=== PATIENT | female | born 1940 | race Caucasian/White ===

== ENCOUNTER 2024-07-02 19:16 | Observation (INO) | payer OTHER, SELFPAY ==
[2024-07-02] VITALS (8 sets, daily range): BP systolic 100–157; BP diastolic 61–89; BMI 23.9; BMI 22.8
--- NOTE | 2024-07-02 14:03 | ED.GENMED ---
History of Present Illness
<Ladi Duarte PA-C - Last Filed: 07/02/24 22:00>
General
Chief Complaint: Head Injury
Source: patient
Exam Limitations: none
Time Seen by Provider: 07/02/24 14:01
Nursing documentation reviewed up to this point in time: agreed with
History of Present Illness
History of Present Illness:
83-year-old female with a past medical history of dementia, hypertension, hyperlipidemia, diabetes presents to the emergency department today with concerns of a fall as well as generalized weakness. I spoke to son he reports that patient originally
was living at home with her however her dementia and memory issues have been gotten worse and she struggled to take care of herself so she moved into the memory care unit of her [facility] on June 27. Son reports that at her
baseline, she is confused and is able to have a conversation and answer questions however she really struggles with short-term memory. Staff reports that earlier this morning, they heard a thud and she was found on the ground of the bathroom.
Staff helped her back in the bed however noticed at around lunchtime, patient had bruising noted to her forehead and to her right upper extremity. She also appeared weaker. When I speak to patient, ask her why she is here, she reports that she is
here because she had some dizziness this morning. Patient states that she does not recall falling. Patient states that the dizziness was lasted a few seconds and she no longer feels this way and states that she feels back to her baseline. She
denies any chest pain or shortness of breath. She denies any fevers or chills or belly pain. She denies any pain in her right upper extremity or headaches.
Past History
<Ladi Duarte PA-C - Last Filed: 07/02/24 22:00>
Past History
ED Past Medical History: HTN, Hypercholesterolemia, Valvular disease and Other (dementia)
ED Past Surgical History: Orthopedic
Social History
Tobacco: Non-smoker
Personal:
Living: with family
Review of Systems
<Ladi Duarte PA-C - Last Filed: 07/02/24 22:00>
Review of Systems
All Other Systems: ROS reviewed and negative except as documented in HPI and ROS
Phy Exam
<Ladi Duarte PA-C - Last Filed: 07/02/24 22:00>
Physical Exam
Physical Exam:
General: Patient is well appearing and in no acute distress; non-toxic
Skin: Warm and dry
Head: Ecchymosis noted to left forehead, no palpable hematoma
Eyes: Sclera non-icteric. EOMs intact.
Neck: No midline spinal tenderness
Cardiac: Irregular heart beat, no murmurs
Pulm: Normal respiratory effort, no wheezes, rales, or rhonchi
Abdomen: No abdominal tenderness to palpation, no ecchymosis, no signs of trauma
Musculoskeletal: Scattered bruising noted to right upper extremity, swelling and bruising noted to right 3rd digit, no bony tenderness to palpation, full range of motion of bilateral upper extremities
Neuro: CN II-XII intact, no focal neurologic deficits.
Psychiatric: Appropriate mood and affect.
Course
<Ladi Duarte PA-C - Last Filed: 07/02/24 22:00>
Orders/Labs/Results
Orders:
Orders
07/02/24 14:20
CT Head W/o Iv Contrast Urgent
Comment:
Reason For Exam: dizziness, AMS
Cardiac Monitoring- Treatment ONCE
07/02/24 14:21
Electrocardiogram (*1) Urgent
Reason for Study: Vertigo / Dizzy
EKG- Treatment ONCE
07/02/24 14:23
CT Cervical Spine W/o Iv Contr Urgent
Comment:
Reason For Exam: blunt head trauma
07/02/24 14:28
CR Chest - 2 Views Urgent
Comment:
Reason For Exam: hypoxia, weakness
07/02/24 14:31
CR Hand - Right Min 3 Views Urgent
Reason For Exam: right hand pain and swelling
07/02/24 14:50
COVID-19 Antigen Urgent
Source: Nasal Swab
Complete Blood Count/With Diff Urgent
Comprehensive Metabolic Panel Urgent
Urinalysis Reflex To Culture Urgent
Date Specimen was Collected: 07/02/24
Time Specimen was Collected: 14:40
Comment: straight cath
Urine Microscopic Reflex Cult Urgent
Influenza A+B Rapid Molecular Urgent
JAMEY Source: Nasal Swab
Specimen Description:
07/02/24 Dinner
1800 calorie (15 carb) Diabetic
At Your Request: Limited, Gaming Department Head Required
07/02/24 16:39
D-Dimer Urgent
07/02/24 18:36
Admit/Transfer Patient As Directed
Co-Sign Provider:
Level of Care: Observation services
Assign to:: Telemetry
Physician / Group: Jadyn Ward
Diagnosis: acute hypoxic respiratory insufficiency, covid, ambulatory dysfunction
Reason for Telemetry: Arrhythmia
Date to Stop Telemetry: 07/05/24
Time to Stop Telemetry: 11:00
07/02/24 18:37
PRN Pain Medication Management As Directed
May give lesser potent ordered pain med per pt: Yes
preference::
Protocol:: Medication orders for pain may be administered in a
manner that supports deferring to patient preference
when the pt is:
- Requesting an ordered lesser potent pain medication.
Least to most potent pain medications are defined
as: acetaminophen < NSAID < tramadol < opioids
(morphine, oxycodone, hydromorphone).
- Requesting a lesser dose of the same medication IF
ORDERED.
- Requesting a less intrusive route of administration
if both routes are prescribed by the provider (PO <
IV).
07/02/24 18:41
Code Status As Directed
Resuscitation Status: Full Code
07/02/24 21:27
Acetaminophen [Tylenol] 650 mg PO Q4HPRN PRN
Carvedilol [Coreg] 6.25 mg PO BID
Dexamethasone Sod Phosphate [Decadron] 6 mg IV Q24H
Dextrose 50%-Water [Dextrose 50% Syringe] 12.5 grams IV [id number] PRN
Glucagon [GlucaGen] 1 mg IM PRN PRN
METFORMIN HCl [Glucophage] 1,000 mg PO BID
insulin glargine [Lantus Solostar U-100 Insulin] 5 unit SC BID
07/02/24 21:27
Activity As Directed
Activity Level: With Assistance
Bedside Glucose Monitoring As Directed
Frequency: AC&HS
Additional Instructions:: Change to q6h if pt on TPN, tube feeding or not eating
Orthostatic Vital Signs As Directed
Orthostatic VS Frequency: Daily
Vital Signs As Directed
Frequency: Per unit guidelines
Weight As Directed
Frequency: Once
Oxygen Therapy [O2 Therapy] [RESP] Routine
Titrate/Wean O2 to maintain O2 sat greater than (%): 93
Ot Eval And Treat Routine
Pt Eval And Treat Routine
Activity Level: With Assistance
DX Deep Vein Thrombosis Video Routine
07/02/24 22:00
Repaglinide [Prandin] 0.5 mg PO TID
07/03/24 06:00
Basic Metabolic Panel IN AM
Complete Blood Count/No Diff IN AM
Glycohemoglobin (HgbA1c) IN AM
07/03/24 07:30
Insulin Aspart Corrective Low [Novolog Flexpen-Low Resistance] See Protocol SC AC
07/03/24 08:00
Aspirin Low Dose EC [Aspir Low (Enteric Coated)] 81 mg PO DAILY
Cholecalciferol (Vitamin D3) [VITAMIN D3 (cholecalciferol)] 125 mcg PO DAILY
Lisinopril [Zestril] 2.5 mg PO DAILY
Rosuvastatin Calcium [Crestor] 20 mg PO DAILY
fupaujep-ohj-RF-lycopen-lutein [CertaVite Senior] 1 tablet PO DAILY
omega 4-ppm-oll-fish oil [Fish Oil] 1 cap PO DAILY
07/03/24 18:00
Enoxaparin Sodium [Lovenox] 40 mg SC QPM
07/05/24 11:00
DC Protocol for Telemetry ONCE
Abnormal Lab Results
07/02/24 07/02/24
14:50 16:39
Absolute Monos (auto) 0.7 H 10^3/uL
(0.1-0.6)
Lymphocytes % 18.2 L %
(20.5-51.1)
Eosinophils % 7.1 H %
(0-6)
D-Dimer 1.28 H ug/mlFEU
(0.00-0.50)
BUN 26 H mg/dl
(7-17)
Glucose 303 H mg/dl
(70-99)
Urine Bacteria (Reflex) Few A
(Negative)
Urine Glucose 4+ A
(Negative)
Urine Albumin (Reflex) 1+ A
(Neg - Trace)
SARS-CoV-2 Antigen Positive A
(Negative)
07/02/24 14:50
07/02/24 14:50
Vital Signs
Initial and Last Documented VS:
Initial Vital Signs
Temp Pulse Resp BP Pulse Ox
97.9 F 71 16 127/77 93
07/02/24 13:49 07/02/24 13:49 07/02/24 13:49 07/02/24 13:49 07/02/24 13:49
Last Documented Vital Signs
Temp Pulse Resp BP Pulse Ox
97.9 F 64 14 145/61 91
07/02/24 13:49 07/02/24 20:00 07/02/24 19:45 07/02/24 20:00 07/02/24 20:00
<Aleks Castellanos MD - Last Filed: 07/02/24 15:18>
Orders/Labs/Results
Orders:
Orders
07/02/24 14:20
CT Head W/o Iv Contrast Urgent
Comment:
Reason For Exam: dizziness, AMS
Cardiac Monitoring- Treatment ONCE
07/02/24 14:21
Electrocardiogram (*1) Urgent
Reason for Study: Vertigo / Dizzy
EKG- Treatment ONCE
07/02/24 14:23
CT Cervical Spine W/o Iv Contr Urgent
Comment:
Reason For Exam: blunt head trauma
07/02/24 14:28
CR Chest - 2 Views Urgent
Comment:
Reason For Exam: hypoxia, weakness
07/02/24 14:31
CR Hand - Right Min 3 Views Urgent
Reason For Exam: right hand pain and swelling
07/02/24 14:50
COVID-19 Antigen Urgent
Source: Nasal Swab
Complete Blood Count/With Diff Urgent
Comprehensive Metabolic Panel Urgent
Urinalysis Reflex To Culture Urgent
Date Specimen was Collected: 07/02/24
Time Specimen was Collected: 14:40
Comment: straight cath
Urine Microscopic Reflex Cult Urgent
Influenza A+B Rapid Molecular Urgent
JAMEY Source: Nasal Swab
Specimen Description:
07/02/24 Dinner
1800 calorie (15 carb) Diabetic
At Your Request: Limited, Gaming Department Head Required
07/02/24 16:39
D-Dimer Urgent
07/02/24 18:36
Admit/Transfer Patient As Directed
Co-Sign Provider:
Level of Care: Observation services
Assign to:: Telemetry
Physician / Group: Jadyn Ward
Diagnosis: acute hypoxic respiratory insufficiency, covid, ambulatory dysfunction
Reason for Telemetry: Arrhythmia
Date to Stop Telemetry: 07/05/24
Time to Stop Telemetry: 11:00
07/02/24 18:37
PRN Pain Medication Management As Directed
May give lesser potent ordered pain med per pt: Yes
preference::
Protocol:: Medication orders for pain may be administered in a
manner that supports deferring to patient preference
when the pt is:
- Requesting an ordered lesser potent pain medication.
Least to most potent pain medications are defined
as: acetaminophen < NSAID < tramadol < opioids
(morphine, oxycodone, hydromorphone).
- Requesting a lesser dose of the same medication IF
ORDERED.
- Requesting a less intrusive route of administration
if both routes are prescribed by the provider (PO <
IV).
07/02/24 18:41
Code Status As Directed
Resuscitation Status: Full Code
07/02/24 21:27
Acetaminophen [Tylenol] 650 mg PO Q4HPRN PRN
Carvedilol [Coreg] 6.25 mg PO BID
Dexamethasone Sod Phosphate [Decadron] 6 mg IV Q24H
Dextrose 50%-Water [Dextrose 50% Syringe] 12.5 grams IV [id number] PRN
Glucagon [GlucaGen] 1 mg IM PRN PRN
METFORMIN HCl [Glucophage] 1,000 mg PO BID
insulin glargine [Lantus Solostar U-100 Insulin] 5 unit SC BID
07/02/24 21:27
Activity As Directed
Activity Level: With Assistance
Bedside Glucose Monitoring As Directed
Frequency: AC&HS
Additional Instructions:: Change to q6h if pt on TPN, tube feeding or not eating
Orthostatic Vital Signs As Directed
Orthostatic VS Frequency: Daily
Vital Signs As Directed
Frequency: Per unit guidelines
Weight As Directed
Frequency: Once
Oxygen Therapy [O2 Therapy] [RESP] Routine
Titrate/Wean O2 to maintain O2 sat greater than (%): 93
Ot Eval And Treat Routine
Pt Eval And Treat Routine
Activity Level: With Assistance
DX Deep Vein Thrombosis Video Routine
07/02/24 22:00
Repaglinide [Prandin] 0.5 mg PO TID
07/03/24 06:00
Basic Metabolic Panel IN AM
Complete Blood Count/No Diff IN AM
Glycohemoglobin (HgbA1c) IN AM
07/03/24 07:30
Insulin Aspart Corrective Low [Novolog Flexpen-Low Resistance] See Protocol SC AC
07/03/24 08:00
Aspirin Low Dose EC [Aspir Low (Enteric Coated)] 81 mg PO DAILY
Cholecalciferol (Vitamin D3) [VITAMIN D3 (cholecalciferol)] 125 mcg PO DAILY
Lisinopril [Zestril] 2.5 mg PO DAILY
Rosuvastatin Calcium [Crestor] 20 mg PO DAILY
ihgswhuo-ebm-IH-lycopen-lutein [CertaVite Senior] 1 tablet PO DAILY
omega 1-tpn-irt-fish oil [Fish Oil] 1 cap PO DAILY
07/03/24 18:00
Enoxaparin Sodium [Lovenox] 40 mg SC QPM
07/05/24 11:00
DC Protocol for Telemetry ONCE
Abnormal Lab Results
07/02/24 07/02/24
14:50 16:39
Absolute Monos (auto) 0.7 H 10^3/uL
(0.1-0.6)
Lymphocytes % 18.2 L %
(20.5-51.1)
Eosinophils % 7.1 H %
(0-6)
D-Dimer 1.28 H ug/mlFEU
(0.00-0.50)
BUN 26 H mg/dl
(7-17)
Glucose 303 H mg/dl
(70-99)
Urine Bacteria (Reflex) Few A
(Negative)
Urine Glucose 4+ A
(Negative)
Urine Albumin (Reflex) 1+ A
(Neg - Trace)
SARS-CoV-2 Antigen Positive A
(Negative)
07/02/24 14:50
07/02/24 14:50
Vital Signs
Initial and Last Documented VS:
Initial Vital Signs
Temp Pulse Resp BP Pulse Ox
97.9 F 71 16 127/77 93
07/02/24 13:49 07/02/24 13:49 07/02/24 13:49 07/02/24 13:49 07/02/24 13:49
Last Documented Vital Signs
Temp Pulse Resp BP Pulse Ox
97.9 F 64 14 145/61 91
07/02/24 13:49 07/02/24 20:00 07/02/24 19:45 07/02/24 20:00 07/02/24 20:00
Michaellt;Ladi Duarte PA-C - Last Filed: 07/02/24 22:00>
MDM/Problems Addressed
Differential Diagnosis Includes:
ddx include mechanical fall, vasovagal syncope, cardiogenic syncope, dysrhythmia, pneumonia, pulmonary embolism
MDM/Problems Addressed:
83-year-old female presents emergency department with concerns of a unwitnessed fall. Staff noticed bruising this morning on her forehead. Patient does not recall falling but she does note some dizziness today. In the ER, patient was found to be
acutely hypoxic to 84% on room air. She was placed on 2 L. She is found to be COVID-positive likely explaining her hypoxia. Chest x-ray negative for concurrent pneumonia. CAT scan of the head negative for acute head bleed. Will refer for
admission.
Chronic conditions affecting care: Other ( Patient had a valve replacement and follows with Dr. Wagner)
<Ladi Duarte PA-C - Last Filed: 07/02/24 22:00>
*Pulse Oximetry
Patient hypoxic: yes
Comment: 84% on RA
*EKG
Interpreted by ED Provider?: Yes
*Critical Care Note
Total Time (30-74mins, 75-104mins- exclusive of procedures): Not Applicable
<Ladi Duarte PA-C - Last Filed: 07/02/24 22:00>
Update Note
Update Note:
Patient found to be hypoxic to 84% on room air with good pleth. Patient denies shortness of breath. Lung sounds clear. Will place on 2 L via nasal cannula.
ED Attending Note
<Ladi Duarte PA-C - Last Filed: 07/02/24 22:00>
-
Portions of this chart may have been created with voice recognition software.� Occasional wrong word or��sound alike� substitutions may have occurred due to the inherent limitations of voice recognition software.
<Aleks Castellanos MD - Last Filed: 07/02/24 15:18>
ED Attending Note
Patient seen and examined by attending physician: Yes
I performed the substantive portion of visit, reviewed & personally made and approve the management plan that is documented in note by myself or FLOR.: Yes
ED Attending Note:
I have seen and evaluated the patient with a [id number] encounter. I have spoken to the [PA] and involved in the medical history, the physical exam, medical decision making.
Evaluation and management service: agree unless noted differently below.
Results interpretation: agree unless noted differently below.
Patient is a 83-year-old woman with history of dementia, hypertension, hyperlipidemia, diabetes presenting to the emergency department with a fall. Patient had a fall this morning. It was unwitnessed. They found her on the ground. Patient states
that she remembers being dizzy before falling but otherwise cannot provide any additional history. Given her dementia there is limited history. At this time she denies any chest pain shortness of breath nausea vomiting. During my evaluation
patient is resting comfortably. She does have bruising to her right upper extremity and swelling to her right middle finger. She does not have any obvious weakness to her extremities.
Patient is a 83-year-old woman with history of dementia presenting to the emergency department with an unwitnessed fall. On arrival patient is hypoxic. She is requiring nasal cannula. Exam does show scattered bruising and swelling to the right
hand. Concern for traumatic intracranial injury as well as possible fracture. Given the hypoxia dizziness and unwitnessed fall could be PE. Will check blood work including dimer EKG chest x-ray. Will obtain CT scan of the head and neck as well
as x-rays. Patient will need admission.
Discharge Plan
Departure
Patient Disposition: Admit
Date of Disposition: 07/02/24
Time of Disposition: 16:52
Admit to: Med/Surg
Presentation/result/management discussed w/ accepting MD/DO: Hospitalist
Condition: Fair
Discharge Problem:
COVID-19, Acute hypoxemic respiratory failure, Ambulatory dysfunction
Interventions
Interventions:
*Risk Screen - Suicide Last Done: 07/02/24 13:49
*General Assessment Last Done: 07/02/24 13:49
*Neglect/Abuse Screening Last Done: 07/02/24 13:49
*ED- Fall Risk Assessment Last Done: 07/02/24 13:49
*Nursing Disposition Last Done: 07/02/24 21:32
ED- Neurological Assessment Last Done: 07/02/24 13:49
ED-Skin Assessment Last Done: 07/02/24 13:49
Discharge Date and Time
Discharge Date/Time: 07/02/24 21:32
[2024-07-02 15:17] LABS: Urine Albumin 1+ (Neg - Trace); Urine Bilirubin Negative (Negative); Urine Character Clear (Clear); Urine Color Yellow; Urine Glucose 4+ (Negative); Urine Ketone Negative (Negative); Urine Leukocyte Negative (Negative); Urine Nitrite Negative (Negative); Urine Occult Blood Negative (Negative); Urine Specific Gravity 1.025 (<1.030); Urine Urobilinogen Negative (Neg - 1+)
[2024-07-02 15:20] LABS: % Basophils 0.4 % (0-2); % Eosinophils 7.1 % (0-6); % Immature Granulocytes 0.4 % (0-0.5); % Lymphocytes 18.2 % (20.5-51.1); % Monocytes 8.4 % (1.7-9.3); % Neutrophils 65.5 % (42.2-75.2); Absolute Eosinophils 0.6 10^3/uL (0-0.7); Absolute Lymphocytes 1.5 10^3/uL (1.2-3.4); Absolute Monocytes 0.7 10^3/uL (0.1-0.6); Absolute Neutrophils 5.4 10^3/uL (1.4-6.5); Hematocrit 38.5 % (37.0-47.0); Hemoglobin 12.8 g/dL (12.0-16.0); Mean Corp Hgb Conc. 33.2 g/dL (33.0-37.0); Mean Corpuscular Hgb 28.4 pg (27.0-31.0); Mean Corpuscular Volume 85.6 fL (81.0-99.0); Mean Platelet Volume 10.1 fL (7.4-10.4); Nucleated Red Blood Cells % 0 %; Platelet Count 138 10^3/uL (130-400); Red Cell Dist. Width 12.8 % (11.5-14.5); White Blood Cell Count 8.3 10^3/uL (4.8-10.8)
[2024-07-02 15:23] LABS: COVID-19 Antigen Positive (Negative)
[2024-07-02 15:26] LABS: Urine Bacteria Few (Negative); Urine Red Blood Cell 0-2 /HPF (0-2); Urine Squamous Cell 0-2 /LPF (Few); Urine White Cell 0-2 /HPF (0-5)
[2024-07-02 15:35] LABS: ALT (SGPT) 21 U/L (0-35); AST (SGOT) 31 U/L (14-36); Albumin 4.2 g/dl (3.5-5.0); Alkaline Phosphatase 47 U/L (38-126); Blood Urea Nitrogen 26 mg/dl (7-17); Calcium 9.6 mg/dl (8.4-10.2); Carbon Dioxide 29 mmol/L (22-30); Chloride 100 mmol/L (98-107); Estimated Creatinine Clearance 52 ml/min; Glucose 303 mg/dl (70-99); Potassium 4.7 mmol/L (3.5-5.1); Sodium 136 mmol/L (135-145); Total Bilirubin 0.9 mg/dl (0.2-1.3); Total Protein 6.5 g/dl (6.3-8.2); eGFR > 60.00
[2024-07-02 17:09] LABS: D-Dimer 1.28 ug/mlFEU (0.00-0.50)
--- NOTE | 2024-07-02 17:25 | HPS.HSE ---
Family Physician
-
Family Physician: An Johnson DO
Chief Complaint
-
generalized weakness/fall
History of Present Illness
Patient is a 83-year-old female with past medical history significant for hypertension, DM-II, Alzheimer's disease and paroxysmal atrial fibrillation who presented to [facility] ED for evaluation s/p unwitnessed fall. Patient was sent for evaluation
from memory care unit. Patient is poor historian, conversation with son via phone call to gather back ground information. He reports patient has lived at home with her until 3 days ago. She was placed in memory care as her had a fall
with broken ribs and is currently in rehab for strength. Due to her need for 24-hour care with dementia family temporally placed her in memory care where she has sustained multiple falls in 3 days. Patient baseline is pleasantly confused, can carry
normal conversation but short term memory is weak. Facility staff stated they found patient on bathroom floor in morning, was able to get her up back to bed. They observed bruising to forehead and arm around lunch and elected to send patient to ED
for evaluation. Patient denies dizziness, shortness of breath, fevers, chills, nausea, vomiting or diarrhea.
Medical History
Past Medical History
Past Medical History: Reports Other
Additional Past Medical History:
Benign Hypertension
DM-II
Alzheimer's Disease
Mitral Valve Disease
Paroxysmal atrial fibrillation
Past Surgical History: Reports Other
Additional Past Surgical History:
Mitral Valve Repair
Mitral Valve Replacement
Right JAVIER
Appendectomy
Right breast cyst excision benign
Social History
Unable to obtain full social history at this time due to: Dementia
Tobacco: Non-smoker
Alcohol: None
Drug: None
Personal:
Living: With Family
Family History
Family History: Not pertinent
Allergies / Home Medications
Allergies reflects when Allergies were last updated in [facility].
Home Medications with original date entered in [facility]
Allergy/Medication List:
Allergies
Allergy/AdvReac Type Severity Reaction Status Date / Time
No Known Allergies Allergy Verified 02/08/23 10:58
Home Medications
lisinopril 2.5 mg tablet 2.5 mg PO DAILY Blood pressure 01/17/19
aspirin 81 mg tablet,delayed release 81 mg PO DAILY Blood clot prevention/tx 01/01/22
carvedilol 6.25 mg tablet 6.25 mg PO BID Heart disease/condition 01/01/22
metformin 1,000 mg tablet 1,000 mg PO BID Diabetes 01/01/22
rosuvastatin 20 mg tablet 20 mg PO DAILY High cholesterol 01/01/22
cholecalciferol (vitamin D3) 125 mcg (5,000 unit) tablet (Vitamin D3) 125 mcg PO DAILY 07/02/24
insulin glargine 100 unit/mL (3 mL) subcutaneous pen (Lantus Solostar U-100 Insulin) 5 unit SC BID 07/02/24
zgdfcyiq-yvr-ivwuq acid 0.4 mg-lycopene 300 mcg-lutein 250 mcg tablet (CertaVite Senior) 1 tab PO DAILY 07/02/24
omega 8-omj-hws-fish oil 1,000 mg (120 mg-180 mg) capsule (Fish Oil) 1 cap PO DAILY 07/02/24
repaglinide 0.5 mg tablet 0.5 mg PO TID 07/02/24
Review of Systems
-
Unable to obtain full review of systems at this time due to: Dementia
Physical Exam
Vital Signs
Vital Signs
Temp Pulse Resp BP Pulse Ox
97.9 F 78 27 157/77 95
07/02/24 13:49 07/02/24 16:30 07/02/24 16:30 07/02/24 16:00 07/02/24 16:15
Physical Exam
General: Well Developed, Well Nourished, No Apparent Distress and Comfortable
HEENT: NormoCephalic, Moist mucous membranes, Atraumatic, Bingen Conjunctivae, Nose Appears Normal and Ears Appear Normal
Respiratory: Clear and Non Labored Respirations
Cardiac: S1/S2 and Irregular Rhythm
GI: Soft, Non Tender, Non Distended and Normal Bowel Sounds; No Organomegaly
Rectal: Deferred by Provider
Genito-urinary: Deferred by me
Musculoskeletal: No Clubbing, No Cyanosis and No Edema
Skin: IV/Catheter Site and Other (bruising noted to RUE and Right forehead )
Neuro: Awake, Alert and Nonfocal/grossly intact
Psych: Calm
Laboratory Results
-
07/02/24 14:50
07/02/24 14:50
Laboratory Results
Total Bilirubin 0.9 mg/dl (0.2-1.3) 07/02/24 14:50
AST 31 U/L (14-36) 07/02/24 14:50
ALT 21 U/L (0-35) 07/02/24 14:50
Alkaline Phosphatase 47 U/L (38-126) 07/02/24 14:50
Data Reviewed
-
Diagnostic Radiology: Report Reviewed by me (CXR: Mild cardiomegaly, unchanged. No acute pulmonary process.; R Hand: Cannot exclude nondisplaced fracture of the distal aspect of the proximal phalanx of the right middle finger.)
CT Scan: Report Reviewed by me (C-Spine: 1. 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 2. SEVERE RIGHT-SIDED FACET JOINT ARTHROSIS at C4/C5, C5/C6, and C7/T1. 3. Severe right neural foraminal narrowing at C4/C5 and C5/C6. 4. Mild
spinal cord compression and central canal stenosis at C5/C6 and C6/C7. 5. Moderately e)
Lab Data: Labs Reviewed by me
Impression/Plan
-
IMPRESSION/PLAN:
#Covid
#acute hypoxemic respiratory insufficiency
ED staff reported patient hypoxic on roomair down to 84%
CXR: Mild cardiomegaly, unchanged.
No acute pulmonary process.
Covid: positive
Influenza: negative
EKG: ATRIAL FIBRILLATION
INFERIOR INFARCT (CITED ON OR BEFORE 01-JAN-2022)
POSSIBLE ANTERIOR INFARCT , AGE UNDETERMINED
- Admit to telemetry
- Dexamethasone 6mg
- supportive care
#mechanical fall
#ambulatory dysfunction
C-spine CT: 1. 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
2. SEVERE RIGHT-SIDED FACET JOINT ARTHROSIS at C4/C5, C5/C6, and C7/T1.
3. Severe right neural foraminal narrowing at C4/C5 and C5/C6.
4. Mild spinal cord compression and central canal stenosis at C5/C6 and C6/C7.
5. Moderately exaggerated cervical lordosis.
6. MILD ACUTE BILATERAL MAXILLARY SINUSITIS.
7. 2.3 cm right lower pole thyroid nodule.
Head CT: 1. MILD ACUTE BILATERAL MAXILLARY SINUSITIS (left greater than right).
2. Small chronic lacunar infarcts in the basal ganglia bilaterally.
3. Small chronic infarct in the right cerebellar hemisphere.
4. Moderate periventricular and deep white matter leukoaraiosis.
5. Mild to moderate diffuse cerebral and cerebellar volume loss.
Right Hand x-ray: Cannot exclude nondisplaced fracture of the distal aspect of the proximal phalanx of the right middle finger.
- consult PT/OT
#Benign Hypertension
- continue carvedilol and lisinopril
#DM-II
- AccuCheck AC & HS
- SSI
- continue Lantus
- continue metformin and repaglinide
#Paroxysmal atrial fibrillation
EKG: ATRIAL FIBRILLATION
INFERIOR INFARCT (CITED ON OR BEFORE 01-JAN-2022)
POSSIBLE ANTERIOR INFARCT , AGE UNDETERMINED
- continue aspirin and carvedilol
#hyperlipidemia
- hold rosuvastatin in setting of Paxlovid for Covid
#Alzheimer's Disease
#Mitral Valve Disease
Code status: Full code
DVT Prophylaxis: Lovenox sq
--- NOTE | 2024-07-02 19:08 | W.PN.UPDATE ---
Update Note
Progress Note Update
This is an addendum to the H&P written by Tracy Rodriguez on 07/02/2024. Patient seen and examined independently with ASSEMBLY INSPECTOR.
83-year-old female past medical history of cardiomyopathy, hypertension, diabetes, dementia, presenting from concerns of fall and generalized weakness at [facility] care. She fell and hit her head today.
Patient found to be positive for COVID here. She was reportedly hypoxic down to 83%. Currently on 2 L oxygen saturating 96%. Chest x-ray shows no acute process.
Blood sugar 300s. Continue diabetic medications and add insulin sliding scale.
CT head and cervical spine negative.
Questionable hypoxemia. Will start dexamethasone 6 mg daily.
Patient with amatory dysfunction and falls secondary to COVID. Case management.
[2024-07-02 21:38] LABS: Glucose - Point of Care 226 mg/dl (70-99)
[2024-07-02] MEDS: GLUCOPHAGE 1000 MG PO (22:53)
[2024-07-02] MEDS: COREG 6.25 MG PO (22:53)
[2024-07-02] MEDS: LANTUS 0.05 UNITS SC (22:53)
[2024-07-02] MEDS: PRANDIN 0.5 MG PO (22:53)
[2024-07-02] MEDS: DECADRON 6 MG IV (22:53)
[2024-07-03] VITALS (7 sets, daily range): BP systolic 111–161; BP diastolic 57–87; PULSE 69–89; O2SAT 100
[2024-07-03 08:30] LABS: Hematocrit 42.9 % (37.0-47.0); Hemoglobin 14.5 g/dL (12.0-16.0); Mean Corp Hgb Conc. 33.8 g/dL (33.0-37.0); Mean Corpuscular Hgb 28.9 pg (27.0-31.0); Mean Corpuscular Volume 85.6 fL (81.0-99.0); Mean Platelet Volume 10.1 fL (7.4-10.4); Platelet Count 155 10^3/uL (130-400); Red Blood Cell Count 5.01 10^6/uL (4.20-5.40); Red Cell Dist. Width 12.6 % (11.5-14.5)
[2024-07-03 09:00] LABS: Blood Urea Nitrogen 21 mg/dl (7-17); Calcium 9.7 mg/dl (8.4-10.2); Carbon Dioxide 24 mmol/L (22-30); Chloride 101 mmol/L (98-107); Estimated Creatinine Clearance 54 ml/min; Glucose 342 mg/dl (70-99); Potassium 4.7 mmol/L (3.5-5.1); Sodium 137 mmol/L (135-145); eGFR > 60.00
[2024-07-03] MEDS: ASPIR LOW (ENTERIC COATED) 81 MG PO (09:09)
[2024-07-03] MEDS: COREG 6.25 MG PO ×2 (09:10→20:32)
[2024-07-03] MEDS: PRANDIN 0.5 MG PO ×3 (09:10→17:39)
[2024-07-03] MEDS: ZESTRIL 2.5 MG PO (09:10)
[2024-07-03] MEDS: CRESTOR 20 MG PO (09:10)
[2024-07-03] MEDS: LANTUS 0.05 UNITS SC ×2 (09:10→20:32)
[2024-07-03] MEDS: GLUCOPHAGE 1000 MG PO ×2 (09:10→17:39)
[2024-07-03] MEDS: THERAGRAN 1 TABLET PO (09:10)
[2024-07-03] MEDS: VITAMIN D3 (cholecalciferol) 125 MCG PO (09:10)
[2024-07-03 09:13] LABS: Glycohemoglobin (HgbA1c) 9.1 % (4.0-5.6)
[2024-07-03 09:20] LABS: Glucose - Point of Care 365 mg/dl (70-99)
[2024-07-03] MEDS: NOVOLOG FLEXPEN-LOW RESISTANCE 5 UNITS SC ×2 (09:20→12:24)
--- NOTE | 2024-07-03 11:38 | CM ---
Addendum entered by Teresa Zepeda RN 07/03/24 16:16:
[facility] able to accept patient tomorrow (07/04). Voice message left for the patient's son Brandon regarding discharge plan.
Original Note:
Reviewed the chart notes and spoke with the patient's son Brandon via telephone. Patient is admitted under observational status. GRANADOS letter explained to the patient's son and a copy left in patient's room for his review. The son had no questions
with regards to the letter.
Patient with dementia and Covid +. Per Brandon, patient moved into [facility] recently. Prior to resided with spouse in a one story home. Patient's spouse currently at [facility] for rehab after a fall with rib fractures. Patient's spouse
will be moving into [facility] when discharged. Discussed with the patient's son PT/OT recommendations of SNF. Patient's son would like to speak with his sister and make decision. CM contact information provided. Son did agree to a referral being
sent to [facility]. Per son, patient is mainly in wheelchair and usually forgets rolling walker. Patient has had many falls recently. CM continues to be available to patient/family and is monitoring medical plan for needs at discharge.
Plan: Discharge plans will depend on the patient's son decision. Referral sent to [facility] via [facility]. Precert will be required is SNF is discharge plan.
--- NOTE | 2024-07-03 12:13 | W.PN.HOSP.TC ---
Today's Communication/Plan
-
dexamethasone
glucose control
splint
ortho/nsg outpatient f/u
DC ready, CM aware - pending SNF
Assessment / Plan
Assessment / Plan
Physical Exam
General: Well Developed, Well Nourished, No Apparent Distress and Comfortable
HEENT: NormoCephalic, Moist mucous membranes, Atraumatic, [place] Conjunctivae, Nose Appears Normal and Ears Appear Normal
Respiratory: Clear and Non Labored Respirations
Cardiac: S1/S2 and Irregular Rhythm
GI: Soft, Non Tender, Non Distended and Normal Bowel Sounds; No Organomegaly
Rectal: Deferred by Provider
Genito-urinary: Deferred by me
Musculoskeletal: No Clubbing, No Cyanosis and No Edema
Skin: IV/Catheter Site and Other (bruising noted to RUE and Right forehead )
Neuro: Awake, Alert and Nonfocal/grossly intact
Psych: Calm
#SARS-CoV-2
#Acute hypoxemic respiratory insufficiency
-can continue dexamethasone
-Inc latonia, acapella
-wean o2 as tolerated
- supportive care
#mechanical fall
#ambulatory dysfunction
-more than likely exacerbated by SARS-CoV-2 although does have mild spinal cord compression and central canal stenosis
� Supportive care
� PT/OT�SNF
#Mild spinal cord compression and central canal stenosis
� C5/C6 and C6/C7
� Severe right-sided facet joint arthrosis
� Follow-up with neurosurgery outpatient
#Possible nondisplaced fracture of the distal aspect of the proximal phalanx of the right middle finger
� Splint placed
� PT/OT
� Follow-up orthopedics outpatient
#2.3 cm right lower pole thyroid nodule.
-F/u outpatient
Head CT: 1. MILD ACUTE BILATERAL MAXILLARY SINUSITIS (left greater than right).
2. Small chronic lacunar infarcts in the basal ganglia bilaterally.
3. Small chronic infarct in the right cerebellar hemisphere.
4. Moderate periventricular and deep white matter leukoaraiosis.
5. Mild to moderate diffuse cerebral and cerebellar volume loss.
Right Hand x-ray: Cannot exclude nondisplaced fracture of the distal aspect of the proximal phalanx of the right middle finger.
- consult PT/OT
#Benign Hypertension
- continue carvedilol and lisinopril
#DM-II
- AccuCheck AC & HS
- SSI
- continue Lantus
-Aic 9.1
- continue metformin and repaglinide
#Paroxysmal atrial fibrillation
- continue aspirin and carvedilol
-not on anticoag
#hyperlipidemia
- hold rosuvastatin in setting of Paxlovid for Covid
#Alzheimer's Disease
#Mitral Valve Disease
Code status: Full code
DVT Prophylaxis: Lovenox sq
Anticipated Discharge: Within 24 hours
Subjective/Interval History
-
Date of Service: July 03, 2024
No acute events
Objective Data
-
Labs:
Laboratory Results
07/03/24
08:04
WBC 8.0
Hgb 14.5
Hct 42.9
Plt Count 155
Sodium 137
Potassium 4.7
Chloride 101
Carbon Dioxide 24
BUN 21 H
Creatinine 0.7
Glucose 342 H
Calcium 9.7
Vital Signs:
Vital Signs
Temp Pulse Resp BP Pulse Ox
97.4 F 80 17 111/63 96
07/03/24 11:05 07/03/24 11:05 07/03/24 11:05 07/03/24 11:05 07/03/24 11:05
Review of Systems
-
History Source: Patient
All other systems: Not reviewed unless documented
Physical Exam
-
General: No Apparent Distress and Comfortable
HEENT: Normocephalic, Atraumatic and Moist Mucous Membranes
Respiratory: Negative Wheezes or Rales
Cardiac: Regular Rhythm; Negative Murmur
GI: Soft, Nontender and Nondistended
Genito-urinary: No Costovertebral Tender
Musculoskeletal: No Clubbing and No Cyanosis
Skin: Negative Rash
Neuro: Awake and Other (followed commands )
Psych: Calm
Data Reviewed
-
Diagnostic Radiology: Report Reviewed by me
CT Scan: Report Reviewed by me
Labs: Labs Reviewed by me
[2024-07-03 12:34] LABS: Glucose - Point of Care 354 mg/dl (70-99)
[2024-07-03] MEDS: LOVENOX 40 MG SC (17:39)
[2024-07-03] MEDS: NOVOLOG FLEXPEN-MODERATE RESISTANCE 7 UNITS SC (17:41)
[2024-07-03 17:45] LABS: Glucose - Point of Care 308 mg/dl (70-99)
[2024-07-03 20:48] LABS: Glucose - Point of Care 295 mg/dl (70-99)
[2024-07-03] MEDS: DECADRON 6 MG IV (21:48)
[2024-07-04 03:14] VITALS: BP 147/79
[2024-07-04 06:45] LABS: Hematocrit 40.7 % (37.0-47.0); Hemoglobin 13.8 g/dL (12.0-16.0); Mean Corp Hgb Conc. 33.9 g/dL (33.0-37.0); Mean Corpuscular Hgb 28.8 pg (27.0-31.0); Mean Corpuscular Volume 84.8 fL (81.0-99.0); Mean Platelet Volume 10.4 fL (7.4-10.4); Platelet Count 150 10^3/uL (130-400); Red Cell Dist. Width 12.5 % (11.5-14.5); White Blood Cell Count 9.8 10^3/uL (4.8-10.8)
[2024-07-04 06:56] LABS: ALT (SGPT) 21 U/L (0-35); AST (SGOT) 20 U/L (14-36); Albumin 3.9 g/dl (3.5-5.0); Alkaline Phosphatase 62 U/L (38-126); Blood Urea Nitrogen 32 mg/dl (7-17); Calcium 9.9 mg/dl (8.4-10.2); Carbon Dioxide 26 mmol/L (22-30); Chloride 99 mmol/L (98-107); Estimated Creatinine Clearance 48 ml/min; Glucose 429 mg/dl (70-99); Potassium 4.9 mmol/L (3.5-5.1); Sodium 135 mmol/L (135-145); Total Bilirubin 0.9 mg/dl (0.2-1.3); Total Protein 6.2 g/dl (6.3-8.2); eGFR > 60.00
[2024-07-04 07:20] VITALS: BP 143/72
[2024-07-04 07:30] LABS: Glucose - Point of Care 390 mg/dl (70-99)
[2024-07-04] MEDS: GLUCOPHAGE 1000 MG PO (07:54)
[2024-07-04] MEDS: CRESTOR 20 MG PO (07:54)
[2024-07-04] MEDS: ZESTRIL 2.5 MG PO (07:54)
[2024-07-04] MEDS: VITAMIN D3 (cholecalciferol) 125 MCG PO (07:54)
[2024-07-04] MEDS: ASPIR LOW (ENTERIC COATED) 81 MG PO (07:55)
[2024-07-04] MEDS: PRANDIN 0.5 MG PO ×2 (07:55→12:44)
[2024-07-04] MEDS: THERAGRAN 1 TABLET PO (07:56)
[2024-07-04] MEDS: COREG 6.25 MG PO (07:56)
[2024-07-04] MEDS: LANTUS 0.05 UNITS SC (07:56)
[2024-07-04] MEDS: NOVOLOG FLEXPEN-MODERATE RESISTANCE 9 UNITS SC ×2 (07:57→12:36)
[2024-07-04 08:25] VITALS: BP 133/77; BP 143/72; BP 155/83; PULSE 72; PULSE 77; PULSE 83
--- NOTE | 2024-07-04 09:10 | CM ---
Reviewed the chart notes and spoke with the patient's son Brandon regarding bed at [facility]. Brandon is agreeable with discharge plan to [facility]. Auth obtained # [id number]; 07/04-07/09; NRD 07/09; call updtds to [phone]; Ambulance auth # [id number]
CM continues to be available to patient/family and is monitoring medical plan for needs at discharge.
Plan: Discharge to [facility] today.
Call report to: [phone]
Fax report to: [phone]
Medical necessity and transport forms on chart.
[2024-07-04 11:10] VITALS: BP 112/67
[2024-07-04 11:18] LABS: Glucose - Point of Care 374 mg/dl (70-99)
--- NOTE | 2024-07-04 12:19 | W.PN.HOSP.TC ---
Addendum entered and electronically signed by Joseph Urena MD 07/05/24 17:06:
[id number]
Original Note:
Today's Communication/Plan
-
glucose control
ortho, nsg outpt
dexamethasone for covid
dc to SNF
f/u cbc, cmp outpt
thyroid nodule f/u
splint for finger, f/u outpt
Assessment / Plan
Assessment / Plan
Physical Exam
General: Well Developed, Well Nourished, No Apparent Distress and Comfortable
HEENT: NormoCephalic, Moist mucous membranes, Atraumatic, [place] Conjunctivae, Nose Appears Normal and Ears Appear Normal
Respiratory: Clear and Non Labored Respirations
Cardiac: S1/S2 and Irregular Rhythm
GI: Soft, Non Tender, Non Distended and Normal Bowel Sounds; No Organomegaly
Rectal: Deferred by Provider
Genito-urinary: Deferred by me
Musculoskeletal: No Clubbing, No Cyanosis and No Edema
Skin: IV/Catheter Site and Other (bruising noted to RUE and Right forehead )
Neuro: Awake, Alert and Nonfocal/grossly intact
Psych: Calm
#SARS-CoV-2
#Acute hypoxemic respiratory insufficiency, resolved
-can continue dexamethasone x 10 days
-Inc latonia, acapella
-wean o2 as tolerated
- supportive care
-unclear symptom initiation - can hold on paxlovid at this time
#mechanical fall
#ambulatory dysfunction
-more than likely exacerbated by SARS-CoV-2 although does have mild spinal cord compression and central canal stenosis
� Supportive care
� PT/OT�SNF
-F/u NSG outpatient
- no evidence of incontinence
#Mild spinal cord compression and central canal stenosis
� C5/C6 and C6/C7
� Severe right-sided facet joint arthrosis
� Follow-up with neurosurgery outpatient
#Possible nondisplaced fracture of the distal aspect of the proximal phalanx of the right middle finger
� Splint placed
� PT/OT
� Follow-up orthopedics outpatient
#2.3 cm right lower pole thyroid nodule.
-F/u outpatient
#Small chronic lacunar infarcts in the basal ganglia bilaterally.
#Small chronic infarct in the right cerebellar hemisphere.
-on ASA 81
#Benign Hypertension
- continue carvedilol and lisinopril
#DM-II
- AccuCheck AC & HS
- SSI
- continue Lantus - increase to 7 u bid, start aspart AC/HS
-Aic 9.1
- continue metformin and repaglinide
-titrate as needed outpt - especially once steroids stop
#Paroxysmal atrial fibrillation
- continue aspirin and carvedilol
-not on anticoag
-f/u outpt
#hyperlipidemia
- rosuvastatin
#Alzheimer's Disease
#Mitral Valve Disease
Code status: Full code
DVT Prophylaxis: Lovenox sq
More than 30 minutes spent in discharge including
Final examination of the patient
Summarizing hospital stay
Instructions for continuing care to all relevant caregivers
Preparation of discharge records, prescriptions, and referral forms
Total time spent (36 in minutes):
Anticipated Discharge: Today
Subjective/Interval History
-
Date of Service: July 04, 2024
no acute events
Objective Data
-
Labs:
Laboratory Results
07/04/24
06:18
WBC 9.8
Hgb 13.8
Hct 40.7
Plt Count 150
Sodium 135
Potassium 4.9
Chloride 99
Carbon Dioxide 26
BUN 32 H
Creatinine 0.8
Glucose 429 H
Calcium 9.9
Total Bilirubin 0.9
AST 20
ALT 21
Alkaline Phosphatase 62
Vital Signs:
Vital Signs
Temp Pulse Resp BP Pulse Ox
98.0 F 71 16 112/67 97
07/04/24 11:10 07/04/24 11:10 07/04/24 11:10 07/04/24 11:10 07/04/24 11:10
I&O
07/03/24 07/04/24 07/05/24
06:59 06:59 06:59
Intake Total 900 / 900
Balance 900 / 900
Review of Systems
-
History Source: Patient
All other systems: Not reviewed unless documented
Physical Exam
-
General: No Apparent Distress and Comfortable
HEENT: Normocephalic, Atraumatic and Moist Mucous Membranes
Respiratory: Negative Wheezes or Rales
Cardiac: Regular Rhythm; Negative Murmur
GI: Soft, Nontender and Nondistended
Genito-urinary: No Costovertebral Tender
Musculoskeletal: No Clubbing, No Cyanosis and Other (right middle figner brusining - able to move joint)
Skin: Negative Rash
Neuro: Awake and Other (followed commands )
Psych: Calm
Data Reviewed
-
Diagnostic Radiology: Report Reviewed by me
CT Scan: Report Reviewed by me
Labs: Labs Reviewed by me
--- NOTE | 2024-07-04 12:26 | W.DS.TRANS ---
DC Summary - Pacs Administrator
-
Discharge Instructions:
Discharge Diagnosis/Procedures #SARS-CoV-2
#Acute hypoxemic respiratory insufficiency
Diet Diabetic, Carb Controlled,Low Cholesterol,Low
Fat
Activity As tolerated
Blood Work [id number] in 3 months
Others Tests 2.3 cm right lower pole thyroid nodule - follow
up outpatient
Instructions:
Stand-Alone Forms:
Changes to Home Medications: Yes
Discharge Medications:
DC Medications w/original date entered in [facility]
lisinopril 2.5 mg tablet 2.5 mg PO DAILY Blood pressure 01/17/19
aspirin 81 mg tablet,delayed release 81 mg PO DAILY Blood clot prevention/tx 01/01/22
carvedilol 6.25 mg tablet 6.25 mg PO BID Heart disease/condition 01/01/22
metformin 1,000 mg tablet 1,000 mg PO BID Diabetes 01/01/22
rosuvastatin 20 mg tablet 20 mg PO DAILY High cholesterol 01/01/22
cholecalciferol (vitamin D3) 125 mcg (5,000 unit) tablet (Vitamin D3) 125 mcg PO DAILY Supplement 07/02/24
kyjoflgj-qle-sbbvo acid 0.4 mg-lycopene 300 mcg-lutein 250 mcg tablet (CertaVite Senior) 1 tab PO DAILY Supplement 07/02/24
omega 0-jqq-ykr-fish oil 1,000 mg (120 mg-180 mg) capsule (Fish Oil) 1 cap PO DAILY Supplement 07/02/24
repaglinide 0.5 mg tablet 0.5 mg PO TID 07/02/24
Insulin Glargine Lantus [Lantus] 7 units As Directed mls/hr SC BID 07/04/24
dexamethasone 6 mg tablet 6 mg PO DAILY 8 days #8 tabs 07/04/24
insulin aspart U-100 100 unit/mL (3 mL) subcutaneous pen 3 unit (0.03 mL) SC AC #0 mL 07/04/24
Home Medication Changes
Insulin Glargine Lantus [Lantus] 7 units As Directed mls/hr SC BID 07/04/24
dexamethasone 6 mg tablet 6 mg PO DAILY 8 days #8 tabs 07/04/24
insulin aspart U-100 100 unit/mL (3 mL) subcutaneous pen 3 unit (0.03 mL) SC AC #0 mL 07/04/24
Pending Results: No
[2024-07-04] MEDS: NOVOLOG FLEXPEN 3 UNITS SC (12:37)
== END 2024-07-04 14:30 ==
LOC: 2 NORTH 19:16
PROVIDERS: Nurse Practitioner Family; Physician Assistant; ADMITTING PHYSICIAN Hospitalist; ATTENDING PHYSICIAN Internal Medicine; EMERGENCY PHYSICIAN Student in an Organized Health Care Education/Training Program; FAMILY PHYSICIAN Hospitalist
DX: U07.1 COVID-19 (principal); R53.1 Weakness; F02.80 Dementia in other diseases classified elsewhere, unspecified severity, without behavioral disturbance, psychotic disturbance, mood disturbance, and anxiety; I11.9 Hypertensive heart disease without heart failure; E11.9 Type 2 diabetes mellitus without complications; R42 Dizziness and giddiness; M79.641 Pain in right hand; M79.89 Other specified soft tissue disorders; R26.2 Difficulty in walking, not elsewhere classified; R06.89 Other abnormalities of breathing; R09.02 Hypoxemia; W19.XXXA Unspecified fall, initial encounter; M47.12 Other spondylosis with myelopathy, cervical region; M50.023 Cervical disc disorder at C6-C7 level with myelopathy; E04.1 Nontoxic single thyroid nodule; I48.0 Paroxysmal atrial fibrillation; E78.5 Hyperlipidemia, unspecified; G30.9 Alzheimer's disease, unspecified; J01.00 Acute maxillary sinusitis, unspecified; M48.02 Spinal stenosis, cervical region; S00.83XA Contusion of other part of head, initial encounter; Z79.4 Long term (current) use of insulin; Z86.73 Personal history of transient ischemic attack (TIA), and cerebral infarction without residual deficits
CPT/HCPCS: 51701; 70450; 71046; 72125; 73030; 73130; 80048; 80053; 81003; 81015; 82962; 83036; 85025; 85027; 85379; 87502; 87811; 93005; 97116; 97163; 97167; 97535; 99285; G0378

== ENCOUNTER → 2024-07-09 09:54 | Outpatient (REF) | payer OTHER, SELFPAY ==
[2024-07-09 12:48] LABS: % Basophils 0.4 % (0-2); % Eosinophils 3.2 % (0-6); % Immature Granulocytes 1.3 % (0-0.5); % Lymphocytes 27.8 % (20.5-51.1); % Monocytes 8.5 % (1.7-9.3); % Neutrophils 58.8 % (42.2-75.2); Absolute Eosinophils 0.3 10^3/uL (0-0.7); Absolute Immature Granulocytes 0.1 10^3/uL (0-0.05); Absolute Lymphocytes 2.7 10^3/uL (1.2-3.4); Absolute Monocytes 0.8 10^3/uL (0.1-0.6); Absolute Neutrophils 5.7 10^3/uL (1.4-6.5); Hematocrit 39.6 % (37.0-47.0); Hemoglobin 13.3 g/dL (12.0-16.0); Mean Corp Hgb Conc. 33.6 g/dL (33.0-37.0); Mean Corpuscular Hgb 28.6 pg (27.0-31.0); Mean Corpuscular Volume 85.2 fL (81.0-99.0); Mean Platelet Volume 10.1 fL (7.4-10.4); Nucleated Red Blood Cells % 0 %; Platelet Count 213 10^3/uL (130-400); Red Blood Cell Count 4.65 10^6/uL (4.20-5.40); Red Cell Dist. Width 12.7 % (11.5-14.5); White Blood Cell Count 9.7 10^3/uL (4.8-10.8)
[2024-07-09 13:02] LABS: ALT (SGPT) 18 U/L (0-35); AST (SGOT) 21 U/L (14-36); Albumin 3.5 g/dl (3.5-5.0); Alkaline Phosphatase 54 U/L (38-126); Blood Urea Nitrogen 28 mg/dl (7-17); Calcium 9.1 mg/dl (8.4-10.2); Carbon Dioxide 25 mmol/L (22-30); Chloride 102 mmol/L (98-107); Glucose 114 mg/dl (70-99); Potassium 4.3 mmol/L (3.5-5.1); Sodium 135 mmol/L (135-145); Total Bilirubin 0.6 mg/dl (0.2-1.3); Total Protein 5.6 g/dl (6.3-8.2); eGFR > 60.00
== END ==
LOC: OLABP 09:54
PROVIDERS: ATTENDING PHYSICIAN Family Medicine
DX: J96.01 Acute respiratory failure with hypoxia (principal); U07.1 COVID-19; R53.1 Weakness; R26.2 Difficulty in walking, not elsewhere classified; E11.9 Type 2 diabetes mellitus without complications; I10 Essential (primary) hypertension; I48.0 Paroxysmal atrial fibrillation; E78.5 Hyperlipidemia, unspecified; G30.1 Alzheimer's disease with late onset; I34.0 Nonrheumatic mitral (valve) insufficiency
CPT/HCPCS: 36415; 80053; 85025

== ENCOUNTER 2024-11-18 23:43 | Inpatient (IN) | payer OTHER, SELFPAY ==
[2024-11-18] VITALS (7 sets, daily range): BP systolic 104–148; BP diastolic 56–87
[2024-11-18 18:27] LABS: Glucose - Point of Care 299 mg/dl (70-99)
--- NOTE | 2024-11-18 18:33 | ED.GENMED ---
History of Present Illness
General
Chief Complaint: Weakness
Source: patient and ambulance crew
Exam Limitations: dementia
Time Seen by Provider: 11/18/24 18:29
History of Present Illness
History of Present Illness:
84-year-old female presented due to nausea vomiting and weakness. Her son was concerned that she had a UTI. She had mild hypoxia upon arrival.
Past History
Past History
ED Past Medical History: HTN, Hypercholesterolemia, Valvular disease and Other (dementia)
ED Past Surgical History: Orthopedic
Social History
Tobacco: Non-smoker
Personal:
Living: with family
Phy Exam
Physical Exam
Physical Exam:
Physical Exam
General: Actively vomiting ll
Neck: supple. no meningeal signs. normal posterior pharynx
Heart: s1/s2 regular rate and rhythm, no murmur. equal radial
pulses.
HEENT: Pupils equal round reactive to light, EOMI
Lungs: Moderate respiratory distress. clear bilaterally
Abdomen: normal bowel sounds. not tender. no CVAT
Neuro: alert and oriented to person. no focal neurological deficits cranial nerves II through XII intact
Skin: no rash
Psychiatric: well kept. interactive and cooperative
Extremities: no edema. no calf tenderness. negative homans. good distal pulses
Course
Orders/Labs/Results
Orders:
Orders
11/18/24 18:28
Electrocardiogram (*1) Urgent
Reason for Study: Fatigue / Weakness
EKG- Treatment ONCE
11/18/24 18:31
Straight cath- Treatment ONCE
11/18/24 18:33
CT Abd/pelvis W Iv Cont Urgent
Comment:
Reason For Exam: n/v, weakness
11/18/24 18:44
Urinalysis Reflex To Culture Urgent
Date Specimen was Collected: 11/18/24
Time Specimen was Collected: 18:43
11/18/24 18:45
Complete Blood Count/With Diff Urgent
Comprehensive Metabolic Panel Urgent
Lipase Urgent
NT-proBNP Urgent
Comment: ADDON
Troponin I Urgent
11/18/24 22:13
CR Chest - 2 Views Urgent
Comment:
Reason For Exam: low pulse ox
11/18/24 22:48
Add On- LAB Urgent
Tests Added?: bnp
11/18/24 23:00
Furosemide [Lasix] 40 mg IV NOW STA
11/18/24 23:30
COVID-19 Antigen Urgent
Source: Nasal Swab
Abnormal Lab Results
11/18/24 11/18/24 11/18/24
18:26 18:44 18:45
WBC 12.1 H 10^3/uL
(4.8-10.8)
Abs Immat Gran (auto) 0.1 H 10^3/uL
(0-0.05)
Absolute Neuts (auto) 9.8 H 10^3/uL
(1.4-6.5)
Neutrophils % 81.2 H %
(42.2-75.2)
Lymphocytes % 12.1 L %
(20.5-51.1)
Sodium 133 L mmol/L
(135-145)
BUN 22 H mg/dl
(7-17)
Glucose 293 H mg/dl
(70-99)
Urine Ketones 1+ A
(Negative)
Urine Glucose 4+ A
(Negative)
POC Glucose 299 H mg/dl
(70-99)
11/18/24 18:45
11/18/24 18:45
Vital Signs
Initial and Last Documented VS:
Initial Vital Signs
Temp Pulse Resp BP Pulse Ox
97.6 F 79 23 148/87 92
11/18/24 18:30 11/18/24 18:30 11/18/24 18:30 11/18/24 18:30 11/18/24 18:30
Last Documented Vital Signs
Temp Pulse Resp BP Pulse Ox
97.6 F 69 14 105/56 92
11/18/24 18:30 11/18/24 23:03 11/18/24 22:45 11/18/24 23:03 11/18/24 22:45
MDM/Problems Addressed
MDM/Problems Addressed:
Note:
CARE-UPDATE
11/18/24 - 23:04
CT of the abdomen and pelvis showed no acute findings; chest X-ray revealed bilateral interstitial edema. The patient continues to experience hypoxia, currently on 10 liters of oxygen via nasal cannula, with some improvement noted. IV Lasix has been
ordered. Plan to admit under the care of the hospitalist for further management.
Disposition:
SUMMARY OF ENCOUNTER
The patient presented to the emergency department with symptoms suggestive of congestive heart failure (CHF), including hypoxia and vomiting. Upon evaluation, hypoxia was confirmed and the diagnosis of CHF was considered primary, necessitating
further management.
DISPOSITION
Admit
ASSESSMENT
The patient is experiencing hypoxia and vomiting, likely secondary to congestive heart failure.
MANAGEMENT OF THE PATIENTS CARE WAS DISCUSSED WITH
Care was discussed with the hospitalist team for further inpatient management.
PLAN
Admit the patient under the care of the hospitalist team for further management of congestive heart failure and associated hypoxia.
INDEPENDENT REVIEW OF LABS AND INTERPRETATION OF TESTS
My independent interpretation of the chest x-ray shows bilateral interstitial edema, confirming the suspicion of congestive heart failure�s contribution to the patients hypoxia.
MEDICATION RECONCILIATION
IV furosemide (Lasix) was ordered to manage fluid overload associated with CHF.
MEDICAL DECISION MAKING
-Complexity of Data Reviewed:
Chronic conditions affecting care include the pre-existing CHF contributing to current symptoms of hypoxia and vomiting. Differential diagnoses considered include hypoxia secondary to non-cardiac causes.
-Data:
Category 1:
Review of testing, including chest x-ray, showing signs consistent with heart failure, such as interstitial edema.
Category 3:
Discussion of management and test interpretation was conducted with the hospitalist team for appropriate inpatient care transition.
DIAGNOSIS
Congestive Heart Failure (I50.9)
Hypoxia (R09.02)
Vomiting (R11.10)
*Pulse Oximetry
SaO2: 92
Oxygen Mode of Delivery: Room air
Patient hypoxic: yes
*Critical Care Note
Total Time (30-74mins, 75-104mins- exclusive of procedures): Not Applicable
ED Attending Note
-
Portions of this chart may have been created with voice recognition software.� Occasional wrong word or��sound alike� substitutions may have occurred due to the inherent limitations of voice recognition software.
Discharge Plan
Departure
Patient Disposition: Admit
Date of Disposition: 11/18/24
Time of Disposition: 23:01
Admit to: Telemetry
Presentation/result/management discussed w/ accepting MD/DO: Hospitalist
Patient with high blood pressure during this ER visit?: No
Condition: Fair
Discharge Problem:
Acute hypoxemic respiratory failure, Acute exacerbation of CHF (congestive heart failure), Vomiting
Prescriptions:
No Action
lisinopril 2.5 MG tablet
2.5 mg PO DAILY
carvedilol 6.25 mg Tablet
6.25 mg PO BID
aspirin 81 mg Tablet,Delayed Release (Dr/Ec)
81 mg PO DAILY
metformin 1,000 mg Tablet
1,000 mg PO BID
rosuvastatin 20 mg Tablet
20 mg PO DAILY
repaglinide 0.5 mg Tablet
0.5 mg PO TID
CertaVite Senior 0.4 mg-300 mcg- 250 mcg Tablet
1 tab PO DAILY
cholecalciferol (vitamin D3) [Vitamin D3] 125 mcg (5,000 unit) Tablet
125 mcg PO DAILY
omega 5-hjw-gyv-fish oil [Fish Oil] 1,000 (120-180) mg Capsule
1 cap PO DAILY
insulin aspart U-100 100 unit/mL (3 mL) Insulin Pen
3 unit SC AC Qty: 0 0RF
Insulin Glargine Lantus [Lantus] 7 UNITS
Subcutaneous Insulin Syringe [Syringe-Insulin] 0 UNIT
As Directed mls/hr SC BID
Ordered By: Joseph Urena MD
Last Taken: 11/18/24 08:00
Referrals:
An Johnson DO [Family Provider, General]
Interventions
Interventions:
*Risk Screen - Suicide Last Done: 11/18/24 18:29
*General Assessment Last Done: 11/18/24 18:29
*Neglect/Abuse Screening Last Done: 11/18/24 18:29
*ED COVID-19 Vaccine History Last Done: 11/18/24 18:29
ED- Cardiac Assessment Last Done: 11/18/24 18:59
ED- Neurological Assessment Last Done: 11/18/24 18:59
ED- Pulmonary Assessment Last Done: 11/18/24 18:59
Discharge Date and Time
Print Language: SWEDISH
[2024-11-18 19:06] LABS: Hematocrit 37.4 % (37.0-47.0); Hemoglobin 12.6 g/dL (12.0-16.0); Mean Corp Hgb Conc. 33.7 g/dL (33.0-37.0); Mean Corpuscular Volume 84.6 fL (81.0-99.0); Nucleated Red Blood Cells % 0 %; Platelet Count 177 10^3/uL (130-400); Red Cell Dist. Width 12.5 % (11.5-14.5)
[2024-11-18 19:24] LABS: ALT (SGPT) 16 U/L (0-35); AST (SGOT) 21 U/L (14-36); Albumin 4.5 g/dl (3.5-5.0); Alkaline Phosphatase 54 U/L (38-126); Blood Urea Nitrogen 22 mg/dl (7-17); Calcium 10.1 mg/dl (8.4-10.2); Carbon Dioxide 23 mmol/L (22-30); Chloride 101 mmol/L (98-107); Glucose 293 mg/dl (70-99); Lipase 78 U/L (23-300); Potassium 4.4 mmol/L (3.5-5.1); Sodium 133 mmol/L (135-145); Total Protein 6.9 g/dl (6.3-8.2); eGFR > 60.00
[2024-11-18 19:30] LABS: Troponin I < 0.012 ng/ml
[2024-11-18 19:40] LABS: Urine Character Clear (Clear)
[2024-11-18] MEDS: LASIX 40 MG IV (23:03)
--- NOTE | 2024-11-18 23:10 | HPS.HSE ---
Addendum entered and electronically signed by Adilson Brown DO 11/18/24 23:59:
Patient seen and examined independently. Agree with findings and plan as set forth by GABRIEL Hernández.
Patient is an 84y F with PMH significant for dementia, A-Fib, mitral valve replacement and hypertension who presents to ED for evaluation of reported weakness and N/V. Patient is awake and alert - but is unable to contribute meaningfully to this
history due to baseline dementia. No additional / significant details reported in documentation thus far.
At the time of my examination, patient is resting comfortably and denies any active complaints.
Ass:
Acute Hypoxemic Respiratory Insufficiency
Reported N/V
Valvular Heart Disease
Cardiomyopathy (EF 40-45% in 2020)
Paroxysmal Atrial Fibrillation
Benign Hypertension
DM-II
Alzheimer's Dementia
Plan:
Admit for further evaluation and treatment.
Unclear etiology of symptoms / current findings.
CXR with patchy bilateral opacities and patient with noted hypoxemia (SpO2 = 90-94%).
Does not appear volume overloaded on exam, is borderline hypotensive and BNP only 700.
Patient is not on chronic diuretic therapy.
Pulmonary edema / CHF seems unlikely.
Update Echo. Follow I/Os, daily weights, etc.
? aspiration pneumonitis given reported N/V.
Aspiration precautions and Speech therapy evaluation.
? atypical / viral pneumonia given appearance of CXR.
Observe off of any abx for now.
Follow temperature curve and monitor for cough, dyspnea, worsening hypoxemia, etc.
Check COVID status.
CT A/P done in the ED was unremarkable. No emesis here.
Antiemetics as needed. Monitor for any clinical changes.
Hold antihypertensive medications acutely.
Continue other usual home medications, insulin regimen, etc.
Original Note:
Family Physician
-
Family Physician: An Johnson, DO
Chief Complaint
-
Weakness, nausea, vomiting
History of Present Illness
84-year-old female from [facility] sent for generalized weakness, nausea and vomiting. Patient with history of dementia she is oriented to name only. She does not recall why she is here at the hospital. She denies current headache,
fever, chills, chest pain, palpitations, cough, shortness of breath, abdominal pain.
The patient has past medical dementia history of severe aortic insufficiency status post mitral valve repair 02/28/2019, dementia oriented to name only HTN, HLD, DM 2, COVID-19 with hypoxia treated with dexamethasone, [facility]
June 2024, history of right middle finger fracture June 2024, 2.3 cm right lower lobe thyroid nodule, ischemic cardiomyopathy EF 40-45%
Medical History
Past Medical History
Past Medical History: Reports Other
Additional Past Medical History:
Paroxysmal atrial fibrillation
Ischemic cardiomyopathy EF 40-45%
Dementia oriented to name only
history of severe aortic insufficiency status post mitral valve repair 02/28/2019
HTN
HLD
DM 2
COVID-19 with hypoxia treated with dexamethasone, [facility] June 2024
History of falls
history of right middle finger fracture June 2024
2.3 cm right lower lobe thyroid nodule
Past Surgical History: Reports Other
Additional Past Surgical History:
history of severe aortic insufficiency status post mitral valve repair 02/28/2019
Mitral Valve Replacement
Right JAVIER
Appendectomy
Right breast cyst excision benign
Social History
Unable to obtain full social history at this time due to: Dementia
Tobacco: Non-smoker
Alcohol: None
Drug: None
Personal:
Living: With Family
Family History
Family History: Not pertinent
Allergies / Home Medications
Allergies reflects when Allergies were last updated in [employer].
Home Medications with original date entered in [employer]
Allergy/Medication List:
Allergies
Allergy/AdvReac Type Severity Reaction Status Date / Time
No Known Allergies Allergy Verified 02/08/23 10:58
Home Medications
lisinopril 2.5 mg tablet 2.5 mg PO DAILY Blood pressure 01/17/19
aspirin 81 mg tablet,delayed release 81 mg PO DAILY Blood clot prevention/tx 01/01/22
carvedilol 6.25 mg tablet 6.25 mg PO BID Heart disease/condition 01/01/22
metformin 1,000 mg tablet 1,000 mg PO BID Diabetes 01/01/22
rosuvastatin 20 mg tablet 20 mg PO DAILY High cholesterol 01/01/22
cholecalciferol (vitamin D3) 125 mcg (5,000 unit) tablet (Vitamin D3) 125 mcg PO DAILY Supplement 07/02/24
jozlbgdr-oee-pjron acid 0.4 mg-lycopene 300 mcg-lutein 250 mcg tablet (CertaVite Senior) 1 tab PO DAILY Supplement 07/02/24
omega 9-ysf-phl-fish oil 1,000 mg (120 mg-180 mg) capsule (Fish Oil) 1 cap PO DAILY Supplement 07/02/24
repaglinide 0.5 mg tablet 0.5 mg PO TID 07/02/24
Insulin Glargine Lantus [Lantus] 7 units As Directed mls/hr SC BID 07/04/24
insulin aspart U-100 100 unit/mL (3 mL) subcutaneous pen 3 unit (0.03 mL) SC AC #0 mL 07/04/24
Review of Systems
-
History Source: Patient and [facility]
A 12 point ROS was completed and negative except as noted: Yes
Constitutional: Denies Fever or Chills
EENT: Denies Sore Throat or Runny Nose
Respiratory: Denies Cough or Trouble Breathing
Cardiac: Denies Chest Pain, Diaphoresis or Palpitations
Abdomen/GI: Reports Nausea and Vomiting; Denies Abdominal Pain or Diarrhea
: Denies Dysuria or Flank Pain
Musculoskeletal: Denies Joint Pain or Edema
Skin: Denies Itching or Rash
Neurological: Denies Dizzy or Headache
Endocrine: Reports No Symptoms
Hematologic/Lymphatic: Reports No Symptoms
Psych: Reports Calm
Physical Exam
Vital Signs
Vital Signs
Temp Pulse Resp BP Pulse Ox
97.6 F 69 14 105/56 92
11/18/24 18:30 11/18/24 23:03 11/18/24 22:45 11/18/24 23:03 11/18/24 22:45
Physical Exam
General: Other (Dementia oriented to name only); No Fever or Chills
HEENT: NormoCephalic, Anicteric, Moist mucous membranes, PERRLA, [place] Conjunctivae and No Ptosis
Respiratory: No Wheezes, Rales or Rhonchi
Cardiac: S1/S2 and Regular Rhythm; No Murmur, Rub, Gallop or Peripheral Edema
Breast: Deferred by me
GI: Soft, Non Tender, Non Distended, Normal Bowel Sounds and No Hepatosplenomegaly
Rectal: Deferred by Provider
Genito-urinary: Deferred by me
Musculoskeletal: No Clubbing, No Cyanosis and No Edema
Skin: Warm and Dry; No Rash or Jaundice
Neuro: Awake, Alert, Oriented (To name only), Cranial Nerves Intact and No Sensory Deficits; No Slurred Speech, Facial Droop, Tremors or Sedated
Psych: Calm
Laboratory Results
-
11/18/24 18:45
11/18/24 18:45
Laboratory Results
Total Bilirubin 0.8 mg/dl (0.2-1.3) 11/18/24 18:45
AST 21 U/L (14-36) 11/18/24 18:45
ALT 16 U/L (0-35) 11/18/24 18:45
Alkaline Phosphatase 54 U/L (38-126) 11/18/24 18:45
Troponin I < 0.012 ng/ml 11/18/24 18:45
Lipase 78 U/L (23-300) 11/18/24 18:45
Impression/Plan
-
Impression/plan:
Admit to MedSurg
#Acute hypoxemic respiratory failure possibly secondary to CHF versus possible aspiration pneumonia
WBC 12.1
90% RA will apply supplemental oxygen
Patient given single dose of IV Lasix we will hold further diuresis
-Check 2D echo
- Aspiration precautions
-Speech eval
-I/O, daily weight
- Check COVID swab
CT abdomen pelvis with IV contrast:
1. No CT evidence for an acute inflammatory process in the abdomen or pelvis.
2. Moderate volume colonic stool, possibly secondary to constipation.
CXR: Mild pulmonary vascular congestion
#Acute nausea vomiting unclear etiology
- Monitor for any vomiting
As needed Zofran
#Mild hypotension/HTN
BP 105/56
-Hold carvedilol, lisinopril
#Severe MR 6 months post MV repair-(see initial MV repair 07/26/18)
Status post MVR-29 mm bovine magna tissue valve cb severe AI necessitating taking out valve improving back in 02/19/19
#Ischemic cardiomyopathy
2D echo 02/02/2021: EF 40-45%, mildly reduced LVSF, hypokinesis of the basal inferior lateral and basal inferior back, diastolic function indeterminate due to mitral valve replacement, well-seated bovine mitral valve, mildly dilated left atrium,
mild AR
#DM2 with hyperglycemia
Blood sugar 293
Accu-Cheks with SSI, check HgbA1c
- Will give Lantus 7 units SQ twice daily
-Hold insulin aspart 3 units subcu with meals due to nausea vomiting
-Hold metformin and repaglinide
#Dementia
Patient oriented to name only
#Paroxysmal A-fib
- Continue aspirin
- Hold carvedilol due to soft blood pressure
#History of falls
#History of severe DDD cervical spine
Fall precautions
#HLD
- Continue statin
# History COVID-19 with [facility] inpatient hospital June 2024
- treated with dexamethasone, Paxlovid in June
# History of right middle finger fracture June 2024
#2.3 cm right lower lobe thyroid nodule
DVT prophylaxis
Subcu Lovenox
Full code
[2024-11-18 23:59] LABS: Glucose - Point of Care 253 mg/dl (70-99)
[2024-11-18] MEDS: LANTUS 0.07 UNITS SC (23:59)
[2024-11-19] VITALS (10 sets, daily range): BP systolic 106–137; BP diastolic 56–74; PULSE 70–71; O2SAT 97
[2024-11-19 00:17] LABS: COVID-19 Antigen Negative (Negative)
--- NOTE | 2024-11-19 03:55 | PTCARENOTE ---
Receive pt from ER. Pt alert, confused to place and time, but in no distress. Pt denies N/V, or SOB. Pt was pulled over to bed, was incontinent of small amount of bowel movement and a large amount of urine. Pt oriented to the room, bed alarm in
place. Pt on NSR W/First degree HB + prolonged QT. VSS (T=98.3, HR=72, RR=20, LH=559/65, SpO2=99% on 4L NC. Pt unable to participate in providing health hx. Will monitor the pt status.
[2024-11-19 08:04] LABS: Glucose - Point of Care 204 mg/dl (70-99)
[2024-11-19 08:16] LABS: Hematocrit 37.1 % (37.0-47.0); Hemoglobin 12.2 g/dL (12.0-16.0); Mean Corp Hgb Conc. 32.9 g/dL (33.0-37.0); Mean Corpuscular Volume 85.1 fL (81.0-99.0); Nucleated Red Blood Cells % 0 %; Platelet Count 148 10^3/uL (130-400); Red Cell Dist. Width 12.7 % (11.5-14.5)
[2024-11-19 08:41] LABS: ALT (SGPT) 12 U/L (0-35); AST (SGOT) 15 U/L (14-36); Albumin 3.7 g/dl (3.5-5.0); Alkaline Phosphatase 41 U/L (38-126); Blood Urea Nitrogen 17 mg/dl (7-17); Calcium 9.4 mg/dl (8.4-10.2); Carbon Dioxide 29 mmol/L (22-30); Chloride 100 mmol/L (98-107); Glucose 203 mg/dl (70-99); Potassium 3.5 mmol/L (3.5-5.1); Sodium 134 mmol/L (135-145); Total Protein 6.0 g/dl (6.3-8.2); eGFR > 60.00
--- NOTE | 2024-11-19 09:00 | PTOTSP ---
Speech Language Pathology
Pt seen for clinical bedside swallow evaluation. P.O. trials of puree, regular solids, and thin liquids provided. Pt with difficulty self-feeding given cognitive deficits. Adequate mastication bolus formation, and A-P transit noted with no oral
residue. No overt signs of aspiration.
Recommend:
(1) Regular solids/thin liquids
(2) General aspiration precautions
(3) Meds as best tolerated from a cognitive standpoint
(4) SWAGING MACHINE OPERATOR to sign off. Please reconsult as indicated
[2024-11-19] MEDS: CRESTOR 20 MG PO (09:33)
[2024-11-19] MEDS: VITAMIN D3 (cholecalciferol) 125 MCG PO (09:33)
[2024-11-19] MEDS: ASPIR LOW (ENTERIC COATED) 81 MG PO (09:34)
[2024-11-19] MEDS: LANTUS 0.07 UNITS SC ×2 (09:39→21:42)
[2024-11-19] MEDS: MIRALAX 17 GRAMS PO (09:39)
[2024-11-19] MEDS: SENOKOT-S 1 TABLET PO (09:39)
[2024-11-19] MEDS: NOVOLOG FLEXPEN-LOW RESISTANCE 2 UNITS SC ×2 (10:08→12:38)
[2024-11-19 11:00] LABS: Glycohemoglobin (HgbA1c) 8.5 % (4.0-5.6)
[2024-11-19 12:09] LABS: Glucose - Point of Care 217 mg/dl (70-99)
--- NOTE | 2024-11-19 13:56 | W.PN.HOSP.TC ---
Today's Communication/Plan
-
bowel regimen
monitor for recurrent n/v, prn zofran
await Echo
follow WBC/T curve
PT/OT
Assessment / Plan
Assessment / Plan
Assessment:
Acute hypoxemic respiratory insufficiency possibly secondary to CHF versus aspiration pneumonia
- wean O2 as able
- CXR: with Mild pulmonary vascular congestion. No overt volume overload on exam. BNP 700. s/p IV Lasix x 1. check Echo
- with nausea/vomiting, more likely aspiration pneumonitis. Monitor off Abx. Monitor for fevers or leukocytosis. COVID negative
- follow ST recs
Nausea/vomiting
- CT: without acute inflammation, but constipation with Moderate volume colonic stool
- tolerating diet
- Miralax/Senna/Colace; may need suppository or enema if no improvement
- prn Zofran
Essential HTN
- holding ROSEMARIE/BB for borderline BPs
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
- tatus post MVR-29 mm bovine magna tissue valve cb severe AI necessitating taking out valve improving back in 02/19/19
Ischemic cardiomyopathy
- 2D echo 02/02/2021: EF 40-45%, mildly reduced LVSF, hypokinesis of the basal inferior lateral and basal inferior back, diastolic function indeterminate due to mitral valve replacement, well-seated bovine mitral valve, mildly dilated left atrium,
mild AR
Type 2 DM2 with hyperglycemia
Blood sugar 293
Accu-Cheks with SSI, check HgbA1c
- Will give Lantus 7 units SQ BID
- insulin aspart low resistance
- Hold metformin and repaglinide
- diabetic diet
Dementia
- Patient oriented to name only
Paroxysmal A-fib
- continue aspirin; not on AC due to hx of falls
- Hold carvedilol due to soft blood pressure
History of falls
History of severe DDD cervical spine
- Fall precautions
HLD
- Continue statin
History COVID-19 with hypoxia inpatient hospital June 2024
History of right middle finger fracture June 2024
2.3 cm right lower lobe thyroid nodule
DVT prophylaxis: Lovenox
Code: Full
Anticipated Discharge: 24 - 48 hours
Subjective/Interval History
-
Date of Service: November 19, 2024
on 2L NC - denies SOB or cough
no further nausea/vomiting at present; tolerated AM Diet
Objective Data
-
Labs:
Laboratory Results
11/19/24
07:46
WBC 8.0
Hgb 12.2
Hct 37.1
Plt Count 148
Sodium 134 L
Potassium 3.5
Chloride 100
Carbon Dioxide 29
BUN 17
Creatinine 0.7
Glucose 203 H
Calcium 9.4
Total Bilirubin 0.6
AST 15
ALT 12
Alkaline Phosphatase 41
Vital Signs:
Vital Signs
Temp Pulse Resp BP Pulse Ox
98.4 F 77 18 112/65 100
11/19/24 11:27 11/19/24 11:27 11/19/24 11:27 11/19/24 11:27 11/19/24 11:27
I&O
11/18/24 11/19/24 11/20/24
06:59 06:59 06:59
Output Total 250 / 250
Balance -250 / -250
Physical Exam
-
General: No Apparent Distress
HEENT: Normocephalic and Atraumatic
Respiratory: Negative Wheezes
Cardiac: Regular Rhythm and S1/S2
GI: Soft
Neuro: AO x 3
Psych: Calm
Data Reviewed
-
Total Time Spent with Patient (in minutes): 42
Labs: Labs Reviewed by me
--- NOTE | 2024-11-19 16:06 | CM ---
Patient w/ advanced dementia. Spoke w/ son, Brandon, initial assessment completed. Patient is an 84y F with PMH significant for dementia, A-Fib, mitral valve replacement and hypertension who presents to ED for evaluation of reported weakness and
N/V. On 2L O2.
Patient is a memory care resident at [facility]. Per Son, patient and spouse were previously living together, spouse who was the assistant oceanographer for patient, fell and broke his rib in June. Both patient and spouse were in [facility] for short
term rehab due to falls, discharged on 07/18. Patient was admitted to [facility] where she experienced a fall on her 2nd and 4th day there and now for safety reasons, gets around in a w/c. Patient is a high fall risk and per son, patient does not wander
around, will try to get up to go to the bathroom but is reminded she needs assistance w/ this. Patient is assisted w/ toileting, bathing and dressing. Patient can feed herself but w/ directions and cues. Per son, prior to patient going to [facility],
he tried to explore [facility], however, spouse did not allow anyone into the home.
Therapy assessed, rec return to [facility] w/ PT. Son confirmed that patient does work w/ PT at [facility].
Plan: Return to [facility] when medically stable. Family will transport at d/c
[2024-11-19 16:57] LABS: Glucose - Point of Care 170 mg/dl (70-99)
[2024-11-19] MEDS: NOVOLOG FLEXPEN-LOW RESISTANCE 1 UNITS SC (17:07)
[2024-11-19] MEDS: LOVENOX 40 MG SC (17:08)
[2024-11-19 21:33] LABS: Glucose - Point of Care 257 mg/dl (70-99)
[2024-11-19] MEDS: SENOKOT-S PO ×2 (21:41→21:50)
--- NOTE | 2024-11-19 23:14 | PTCARENOTE ---
Pt refused senna and oral care this pm.
[2024-11-20 03:23] VITALS: BP 118/65
[2024-11-20 06:00] VITALS: BMI 24.4
[2024-11-20 07:24] VITALS: BP 111/68
[2024-11-20 07:58] LABS: Hematocrit 39.3 % (37.0-47.0); Hemoglobin 13.0 g/dL (12.0-16.0); Mean Corp Hgb Conc. 33.1 g/dL (33.0-37.0); Mean Corpuscular Volume 85.6 fL (81.0-99.0); Nucleated Red Blood Cells % 0 %; Platelet Count 159 10^3/uL (130-400); Red Cell Dist. Width 12.8 % (11.5-14.5)
[2024-11-20 08:17] LABS: Glucose - Point of Care 139 mg/dl (70-99)
[2024-11-20] MEDS: NOVOLOG FLEXPEN-LOW RESISTANCE SC (08:31)
[2024-11-20] MEDS: VITAMIN D3 (cholecalciferol) 125 MCG PO (08:32)
[2024-11-20] MEDS: CRESTOR 20 MG PO (08:32)
[2024-11-20] MEDS: SENOKOT-S 1 TABLET PO ×2 (08:32→19:36)
[2024-11-20] MEDS: LANTUS 0.07 UNITS SC ×2 (08:32→21:03)
[2024-11-20] MEDS: MIRALAX 17 GRAMS PO (08:32)
[2024-11-20] MEDS: ASPIR LOW (ENTERIC COATED) 81 MG PO (08:32)
[2024-11-20 08:43] LABS: ALT (SGPT) 14 U/L (0-35); AST (SGOT) 19 U/L (14-36); Albumin 4.0 g/dl (3.5-5.0); Alkaline Phosphatase 40 U/L (38-126); Blood Urea Nitrogen 15 mg/dl (7-17); Calcium 9.4 mg/dl (8.4-10.2); Carbon Dioxide 29 mmol/L (22-30); Chloride 103 mmol/L (98-107); Estimated Creatinine Clearance 52 ml/min; Glucose 160 mg/dl (70-99); Potassium 3.9 mmol/L (3.5-5.1); Sodium 138 mmol/L (135-145); Total Protein 6.3 g/dl (6.3-8.2); eGFR > 60.00
[2024-11-20 11:55] VITALS: BP 136/74
[2024-11-20 12:42] LABS: Glucose - Point of Care 157 mg/dl (70-99)
--- NOTE | 2024-11-20 12:51 | W.PN.HOSP.TC ---
Today's Communication/Plan
-
repeat CXR in AM
monitor O2
bowel regimen
Assessment / Plan
Assessment / Plan
Assessment:
Acute hypoxemic respiratory insufficiency possibly secondary to CHF versus aspiration pneumonia
- wean O2 as able
- CXR: with Mild pulmonary vascular congestion. No overt volume overload on exam. BNP 700. s/p IV Lasix x 1. Echo with stable EF 40%. Repeat CXR in AM.
- with nausea/vomiting, more likely aspiration pneumonitis. Monitor off Abx. Monitor for fevers or leukocytosis. COVID negative
- follow ST recs
Nausea/vomiting
- CT: without acute inflammation, but constipation with Moderate volume colonic stool
- tolerating diet
- Miralax/Senna/Colace; may need suppository or enema if no improvement
- prn Zofran
Essential HTN
- holding ROSEMARIE
- resume Coreg
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
- tatus post MVR-29 mm bovine magna tissue valve cb severe AI necessitating taking out valve improving back in 02/19/19
Ischemic cardiomyopathy
- 2D echo 02/02/2021: EF 40-45%, mildly reduced LVSF, hypokinesis of the basal inferior lateral and basal inferior back, diastolic function indeterminate due to mitral valve replacement, well-seated bovine mitral valve, mildly dilated left atrium,
mild AR
Type 2 DM2 with hyperglycemia
Blood sugar 293
Accu-Cheks with SSI, check HgbA1c
- Will give Lantus 7 units SQ BID
- insulin aspart low resistance
- Hold metformin and repaglinide
- diabetic diet
Dementia
- Patient oriented to name only
Paroxysmal A-fib
- continue aspirin; not on AC due to hx of falls
- Hold carvedilol due to soft blood pressure
History of falls
History of severe DDD cervical spine
- Fall precautions
HLD
- Continue statin
History COVID-19 with hypoxia inpatient hospital June 2024
History of right middle finger fracture June 2024
2.3 cm right lower lobe thyroid nodule
DVT prophylaxis: Lovenox
Code: Full
Anticipated Discharge: Within 24 hours
Subjective/Interval History
-
Date of Service: November 20, 2024
resting comfortably, no complaints at present
Objective Data
-
Labs:
Laboratory Results
11/20/24
07:04
WBC 7.3
Hgb 13.0
Hct 39.3
Plt Count 159
Sodium 138
Potassium 3.9
Chloride 103
Carbon Dioxide 29
BUN 15
Creatinine 0.6
Glucose 160 H
Calcium 9.4
Total Bilirubin 0.6
AST 19
ALT 14
Alkaline Phosphatase 40
Vital Signs:
Vital Signs
Temp Pulse Resp BP Pulse Ox
98.6 F 81 16 111/68 97
11/20/24 07:24 11/20/24 07:24 11/20/24 07:24 11/20/24 07:24 11/20/24 07:24
I&O
11/19/24 11/20/24 11/21/24
06:59 06:59 06:59
Intake Total 480 / 480
Output Total 250 / 250
Balance -250 / -250 480 / 480
Physical Exam
-
General: No Apparent Distress
HEENT: Normocephalic and Atraumatic
Respiratory: Negative Wheezes
Cardiac: Regular Rhythm
GI: Soft and Nontender
Neuro: AO x 3
Psych: Calm
Data Reviewed
-
Total Time Spent with Patient (in minutes): 44
Labs: Labs Reviewed by me
[2024-11-20] MEDS: COREG 6.25 MG PO ×2 (13:32→19:36)
[2024-11-20] MEDS: NOVOLOG FLEXPEN-LOW RESISTANCE 1 UNITS SC ×2 (13:39→17:14)
[2024-11-20 15:35] VITALS: BP 142/87
[2024-11-20 16:08] LABS: Glucose - Point of Care 152 mg/dl (70-99)
[2024-11-20] MEDS: LOVENOX 40 MG SC (17:15)
[2024-11-20 19:31] VITALS: BP 164/80
[2024-11-20 21:04] LABS: Glucose - Point of Care 291 mg/dl (70-99)
[2024-11-20 23:28] VITALS: BP 123/64
[2024-11-21 03:55] VITALS: BP 121/70
[2024-11-21 06:00] VITALS: BMI 24.4
[2024-11-21 07:46] VITALS: BP 136/76
[2024-11-21 08:10] LABS: Glucose - Point of Care 176 mg/dl (70-99)
[2024-11-21 08:16] LABS: Hematocrit 36.1 % (37.0-47.0); Hemoglobin 12.1 g/dL (12.0-16.0); Mean Corp Hgb Conc. 33.5 g/dL (33.0-37.0); Mean Corpuscular Volume 84.1 fL (81.0-99.0); Nucleated Red Blood Cells % 0 %; Platelet Count 147 10^3/uL (130-400); Red Cell Dist. Width 12.5 % (11.5-14.5)
[2024-11-21] MEDS: SENOKOT-S 1 TABLET PO (08:35)
[2024-11-21] MEDS: VITAMIN D3 (cholecalciferol) 125 MCG PO (08:35)
[2024-11-21] MEDS: ASPIR LOW (ENTERIC COATED) 81 MG PO (08:35)
[2024-11-21] MEDS: NOVOLOG FLEXPEN-LOW RESISTANCE 1 UNITS SC (08:35)
[2024-11-21] MEDS: COREG 6.25 MG PO (08:35)
[2024-11-21] MEDS: CRESTOR 20 MG PO (08:35)
[2024-11-21] MEDS: FLUSH (NSS) 1 FLUSH IV (08:36)
[2024-11-21] MEDS: DULCOLAX 10 MG RECTAL (08:36)
[2024-11-21] MEDS: MIRALAX 17 GRAMS PO (08:36)
[2024-11-21] MEDS: LANTUS 0.07 UNITS SC (08:38)
[2024-11-21 08:51] LABS: ALT (SGPT) 12 U/L (0-35); AST (SGOT) 18 U/L (14-36); Albumin 3.7 g/dl (3.5-5.0); Alkaline Phosphatase 40 U/L (38-126); Blood Urea Nitrogen 15 mg/dl (7-17); Calcium 9.2 mg/dl (8.4-10.2); Carbon Dioxide 25 mmol/L (22-30); Chloride 104 mmol/L (98-107); Estimated Creatinine Clearance 52 ml/min; Glucose 180 mg/dl (70-99); Potassium 3.6 mmol/L (3.5-5.1); Sodium 137 mmol/L (135-145); Total Protein 5.9 g/dl (6.3-8.2); eGFR > 60.00
--- NOTE | 2024-11-21 10:57 | CM ---
Addendum entered by SUSHIL Disla 11/21/24 13:27:
Spoke with attending who confirmed discharge for today. Placed a call to patient's son, Brandon, who had already spoken with attending MD. He had no further questions and concerns. He refused VN on patient's behalf as he stated that they have their
own PT/OT at facility. Placed a call to [facility] that patient was referred for VN services and confirm that they have resource on site. Had to leave a voice mail message. Provided contact information for return call.
Imm reviewed with son.
Transfer sheet and med necessity on chart.
Original Note:
Spoke with the DON at [facility], who stated that when patient is cleared for discharge the # for report will be [phone] and fax# [phone].
Patient will need ambulance transport. When discharged will complete medical necessity and transfer sheet to director of community life.
Plan: Case management will continue to follow and assist with discharge planning. Back to [facility] when stable for discharge.
--- NOTE | 2024-11-21 11:15 | W.PN.HOSP.TC ---
Today's Communication/Plan
-
dc back to [facility]
Assessment / Plan
Assessment / Plan
Assessment:
Acute hypoxemic respiratory insufficiency possibly secondary to CHF versus aspiration pneumonia
- wean O2 as able; currently on RA
- CXR: with Mild pulmonary vascular congestion. No overt volume overload on exam. BNP 700. s/p IV Lasix x 1. Echo with stable EF 40%. Repeat CXR clear.
- with nausea/vomiting, more likely aspiration pneumonitis. Monitor off Abx. Monitor for fevers or leukocytosis. COVID negative
- follow ST recs
Nausea/vomiting
- CT: without acute inflammation, but constipation with Moderate volume colonic stool
- tolerating diet
- Miralax/Senna/Colace. s/p suppository today with large BM
- prn Zofran
Essential HTN
- resume Coreg/ROSEMARIE at discharge
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
Ischemic cardiomyopathy
- 2D echo 02/02/2021: EF 40-45%, mildly reduced LVSF, hypokinesis of the basal inferior lateral and basal inferior back, diastolic function indeterminate due to mitral valve replacement, well-seated bovine mitral valve, mildly dilated left atrium,
mild AR
Type 2 DM2 with hyperglycemia
Blood sugar 293
Accu-Cheks with SSI, check HgbA1c
- Will give Lantus 7 units SQ BID
- insulin aspart low resistance
- resume metformin and repaglinide at discharge
- diabetic diet
Dementia
- Patient oriented to name only
Paroxysmal A-fib
- continue aspirin; not on AC due to hx of falls
- resume carvedilol due to soft blood pressure
History of falls
History of severe DDD cervical spine
- Fall precautions
HLD
- Continue statin
History COVID-19 with hypoxia inpatient hospital June 2024
History of right middle finger fracture June 2024
2.3 cm right lower lobe thyroid nodule
DVT prophylaxis: Lovenox
Code: Full
More than 30 minutes spent in discharge including
Final examination of the patient
Summarizing hospital stay
Instructions for continuing care to all relevant caregivers
Preparation of discharge records, prescriptions, and referral forms
Total time spent (in minutes): 41
Anticipated Discharge: Today
Subjective/Interval History
-
Date of Service: November 21, 2024
s/p BM today after suppository
CXR clear
on RA
comfortable
Objective Data
-
Labs:
Laboratory Results
11/21/24
07:46
WBC 6.3
Hgb 12.1
Hct 36.1 L
Plt Count 147
Sodium 137
Potassium 3.6
Chloride 104
Carbon Dioxide 25
BUN 15
Creatinine 0.6
Glucose 180 H
Calcium 9.2
Total Bilirubin 0.6
AST 18
ALT 12
Alkaline Phosphatase 40
Vital Signs:
Vital Signs
Temp Pulse Resp BP Pulse Ox
97.3 F 70 16 136/76 98
11/21/24 07:46 11/21/24 08:35 11/21/24 07:46 11/21/24 08:35 11/21/24 08:31
I&O
11/20/24 11/21/24 11/22/24
06:59 06:59 06:59
Intake Total 480 / 480 620 / 620
Balance 480 / 480 620 / 620
Physical Exam
-
General: No Apparent Distress
HEENT: Normocephalic and Atraumatic
Respiratory: Negative Wheezes
Cardiac: Regular Rhythm and S1/S2
GI: Soft and Nontender
Musculoskeletal: No Edema
Neuro: AO x 3
Psych: Calm and Apparent Dementia
Data Reviewed
-
Total Time Spent with Patient (in minutes): 42
Labs: Labs Reviewed by me
--- NOTE | 2024-11-21 11:20 | W.PN.HOSP.TC ---
Addendum entered and electronically signed by Erica Galvin MD 11/21/24 11:24:
delete - duplicate note
Original Note:
Today's Communication/Plan
-
dc back to LONG TERM
Assessment / Plan
Assessment / Plan
Assessment:
Acute hypoxemic respiratory insufficiency possibly secondary to CHF versus aspiration pneumonia
- wean O2 as able; currently on RA
- CXR: with Mild pulmonary vascular congestion. No overt volume overload on exam. BNP 700. s/p IV Lasix x 1. Echo with stable EF 40%. Repeat CXR clear.
- with nausea/vomiting, more likely aspiration pneumonitis. Monitor off Abx. Monitor for fevers or leukocytosis. COVID negative
- follow ST recs
Nausea/vomiting
- CT: without acute inflammation, but constipation with Moderate volume colonic stool
- tolerating diet
- Miralax/Senna/Colace. s/p suppository today with large BM
- prn Zofran
Essential HTN
- resume Coreg/ROSEMARIE at discharge
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
Ischemic cardiomyopathy
- 2D echo 02/02/2021: EF 40-45%, mildly reduced LVSF, hypokinesis of the basal inferior lateral and basal inferior back, diastolic function indeterminate due to mitral valve replacement, well-seated bovine mitral valve, mildly dilated left atrium,
mild AR
Type 2 DM2 with hyperglycemia
Blood sugar 293
Accu-Cheks with SSI, check HgbA1c
- Will give Lantus 7 units SQ BID
- insulin aspart low resistance
- resume metformin and repaglinide at discharge
- diabetic diet
Dementia
- Patient oriented to name only
Paroxysmal A-fib
- continue aspirin; not on AC due to hx of falls
- resume carvedilol due to soft blood pressure
History of falls
History of severe DDD cervical spine
- Fall precautions
HLD
- Continue statin
History COVID-19 with hypoxia inpatient hospital June 2024
History of right middle finger fracture June 2024
2.3 cm right lower lobe thyroid nodule
DVT prophylaxis: Lovenox
Code: Full
More than 30 minutes spent in discharge including
Final examination of the patient
Summarizing hospital stay
Instructions for continuing care to all relevant caregivers
Preparation of discharge records, prescriptions, and referral forms
Total time spent (in minutes): 42
Anticipated Discharge: Today
Subjective/Interval History
-
Date of Service: November 21, 2024
resting comfortably, no complaints
had a large BM
Objective Data
-
Labs:
Laboratory Results
11/21/24
07:46
WBC 6.3
Hgb 12.1
Hct 36.1 L
Plt Count 147
Sodium 137
Potassium 3.6
Chloride 104
Carbon Dioxide 25
BUN 15
Creatinine 0.6
Glucose 180 H
Calcium 9.2
Total Bilirubin 0.6
AST 18
ALT 12
Alkaline Phosphatase 40
Vital Signs:
Vital Signs
Temp Pulse Resp BP Pulse Ox
97.3 F 70 16 136/76 98
11/21/24 07:46 11/21/24 08:35 11/21/24 07:46 11/21/24 08:35 11/21/24 08:31
I&O
11/20/24 11/21/24 11/22/24
06:59 06:59 06:59
Intake Total 480 / 480 620 / 620
Balance 480 / 480 620 / 620
Physical Exam
-
General: No Apparent Distress
HEENT: Normocephalic and Atraumatic
Respiratory: Negative Wheezes
Cardiac: Regular Rhythm and S1/S2
GI: Soft and Nontender
Neuro: AO x 3
Psych: Calm
Data Reviewed
-
Total Time Spent with Patient (in minutes): 42
Labs: Labs Reviewed by me
[2024-11-21 11:21] VITALS: BP 112/59
--- NOTE | 2024-11-21 11:29 | W.DS.TRANS ---
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
-
Discharge Instructions:
Discharge Diagnosis/Procedures constipation with nausea/vomiting, aspiration
from nausea/vomiting
Diet Diabetic, Carb Controlled
Activity As tolerated
Bathing Restrictions None
Other Services VN
Instructions:
Stand-Alone Forms:
Changes to Home Medications: No
Discharge Medications:
DC Medications w/original date entered in [employer]
lisinopril 2.5 mg tablet 2.5 mg PO DAILY Blood pressure 01/17/19
aspirin 81 mg tablet,delayed release 81 mg PO DAILY Blood clot prevention/tx 01/01/22
carvedilol 6.25 mg tablet 6.25 mg PO BID Heart disease/condition 01/01/22
metformin 1,000 mg tablet 1,000 mg PO BID Diabetes 01/01/22
rosuvastatin 20 mg tablet 20 mg PO DAILY High cholesterol 01/01/22
cholecalciferol (vitamin D3) 125 mcg (5,000 unit) tablet (Vitamin D3) 125 mcg PO DAILY Supplement 07/02/24
kmataxvw-wac-ocqeh acid 0.4 mg-lycopene 300 mcg-lutein 250 mcg tablet (CertaVite Senior) 1 tab PO DAILY Supplement 07/02/24
omega 1-ldf-csr-fish oil 1,000 mg (120 mg-180 mg) capsule (Fish Oil) 1 cap PO DAILY Supplement 07/02/24
repaglinide 0.5 mg tablet 0.5 mg PO TID Diabetes 07/02/24
Insulin Glargine Lantus [Lantus] 7 units As Directed mls/hr SC BID 07/04/24
insulin aspart U-100 100 unit/mL (3 mL) subcutaneous pen 3 unit (0.03 mL) SC AC #0 mL 07/04/24
polyethylene glycol 3350 17 gram oral powder packet 17 g PO DAILY PRN constipation #30 ea 11/21/24
Home Medication Changes
Pending Results: No
Total time spent discharging patient (in min): 42
[2024-11-21 12:36] LABS: Glucose - Point of Care 266 mg/dl (70-99)
[2024-11-21] MEDS: NOVOLOG FLEXPEN-LOW RESISTANCE 3 UNITS SC (12:50)
[2024-11-21 15:37] VITALS: BP 97/63
--- NOTE | 2024-11-21 15:47 | PTCARENOTE ---
Pt discharged to [facility] by ambulance, all belongings sent with pt. Attempted to call report x2- no answer; message left for Mary. Condition stable at time of DC.
== END 2024-11-21 15:53 | disposition home or self-care (01) | DRG 179 ==
LOC: 4 EAST ACU 23:43
PROVIDERS: Clinical Nurse Specialist Family Health; ADMITTING PHYSICIAN Hospitalist; ATTENDING PHYSICIAN Internal Medicine; EMERGENCY PHYSICIAN Emergency Medicine; FAMILY PHYSICIAN Hospitalist
DX: J69.0 Pneumonitis due to inhalation of food and vomit (principal); I11.0 Hypertensive heart disease with heart failure; I50.9 Heart failure, unspecified; Z95.2 Presence of prosthetic heart valve; I25.5 Ischemic cardiomyopathy; E11.65 Type 2 diabetes mellitus with hyperglycemia; I48.0 Paroxysmal atrial fibrillation; E04.1 Nontoxic single thyroid nodule; Z11.52 Encounter for screening for COVID-19; Z91.81 History of falling; F02.80 Dementia in other diseases classified elsewhere, unspecified severity, without behavioral disturbance, psychotic disturbance, mood disturbance, and anxiety; G30.9 Alzheimer's disease, unspecified; E78.00 Pure hypercholesterolemia, unspecified; K59.00 Constipation, unspecified; Z79.4 Long term (current) use of insulin
CPT/HCPCS: 71046; 74177; 80053; 81003; 82962; 83036; 83690; 83880; 84484; 85025; 87070; 87811; 92610; 93005; 93306; 96374; 97163; 97167; 99285; Q9950; Q9967